=== PATIENT | female | born 1945 | race Caucasian/White ===

== ENCOUNTER 2019-07-04 16:51 | Inpatient (IN) ==
--- NOTE | 2019-07-04 17:13 | Diag Imaging Result Doc PS360 ---
EXAM: CT HEAD W/O CONTRAST 07/04/2019 HISTORY: STROKE LIKE SYMPTOMS TECHNIQUE: This exam was performed using automated exposure control, adjustment of mA or kV according to patient size, and/or use of iterative reconstruction technique. COMMENT: There are patchy abnormal lucencies in the periventricular white matter of both hemispheres. There is no evidence of mass effect or bleed. No abnormal extra-axial fluid collections are present. Compared to the previous examination of 10/17/2018 the appearance of the brain has not changed significantly. The visualized paranasal sinuses are clear. The calvarium is intact. IMPRESSION: Extensive chronic ischemic microvascular white matter changes. No definite evidence of acute disease. Further evaluation with MRI may be desirable. Electronically signed by Jhon River 07/04/2019 5:11 PM
--- NOTE | 2019-07-04 17:55 | Diag Imaging Result Doc PS360 ---
EXAM: CHEST-PORTABLE 07/04/2019 HISTORY: abd tender,pain TECHNIQUE: AP portable at 1736 COMMENT: There is ill-defined opacity in the left base obscuring the costophrenic sulcus which is worse than on 10/17/2018. There is apparent fibrosis in the right lower lobe which was present previously. IMPRESSION: Atelectasis versus pneumonia in the left lower lobe. Electronically signed by Jhon River 07/04/2019 5:52 PM
[2019-07-04 18:24] LABS: BASO# 0.04 X1000 (0.0-0.2); BASO% 0.2 % (0.0-0.8); EOS# 0.06 X1000 (0.0-0.7); EOS% 0.3 % (0.0-10.0); HEMATOCRIT 50.9 % (37.0-47.0); HEMOGLOBIN 16.7 g/dL (12.0-16.0); IMM GRAN# 0.07 X1000 (0.0-0.04); IMM GRAN% 0.4 % (0.0-0.5); LYMPH# 2.07 X1000 (1.2-3.4); LYMPH% 10.5 % (20.5-51.1); MCH 30.1 PG (27-31); MCHC 32.8 g/dL (33-37); MCV 91.7 FL (81-99); MONO% 12.6 % (1.7-9.3); MPV 11.8 FL (7.4-10.4); NEUT# 15.05 X1000 (1.4-6.5); PLT 231 X1000 (130-400); RBC 5.55 XMIL (4.2-5.4); RDW 14.2 % (11.5-14.5); WBC 19.79 X1000 (4.8-10.8)
--- NOTE | 2019-07-04 18:25 | ED EKG INTERP ---
This chart was entered by Lisa Delatorre Scribe, acting as scribe for Jayant Gruber MD. EKG Interpretation - EKG Time of EKG reading by physician:: 18:21 EKG Read and Signed by:: Jayant Gruber EKG Interpretation (*Must complete 3 of following elements*): Abnormal Rate: 96 Rhythm: SR w/PVCs [place]: normal QRS: other (low voltage) DE Interval: normal ST Wave: normal Comments: Septal infarct, age undetermined Attestation - Physician/ NUHA Attestation Patient care was provided by Advanced Practice Provider:: No The physician spent face to face time with patient:: Yes Advanced Practice Provider documentation review:: Supervising physician onsite and consulted in the evaluation and care of this patient. The physician did have a face to face encounter with the patient. This chart was documented by the indicated scribe, (Lisa Delatorre Scribe) and accurately reflects the services I performed and decisions made by me, Jayant Gruber MD, as attested by the provider's signature.
[2019-07-04 18:46] LABS: AGAP 18; ALB/GLOB RATIO 1.3; ALBUMIN 3.8 g/dL (3.5-5.0); ALKALINE PHOSPHATASE 69 U/L (32-104); BUN 19 mg/dL (8-22); CALCIUM 9.5 mg/dL (8.8-10.2); CHLORIDE 100 mmol/L (98-107); COSMO 289; CREATININE 0.8 mg/dL (0.5-0.9); ESTIMATED GFR > 60; GLUCOSE 125 mg/dL (70-104); GOT 26 U/L (10-30); GPT 13 U/L (10-36); POTASSIUM 4.5 mmol/L (3.5-5.1); SODIUM 143 mmol/L (136-145); TCO2 25 mmol/L (25-35); TOTAL BILIRUBIN 0.39 mg/dL (0.20-1.00); TOTAL PROTEIN 6.7 g/dL (6.3-8.3)
[2019-07-04] MEDS ORDERED: VANCOMYCIN 1 GM/NS 1 GM/250 ML IVPB IV ONE (18:52)
[2019-07-04] MEDS ORDERED: ZOSYN 4.5 GM in NS 100 ML IV ONE (18:52)
[2019-07-04 19:04] LABS: INR 1.21; PROTIME 15.5 Seconds (11.0-16.0)
[2019-07-04 19:07] LABS: ACETONE SERUM NEGATIVE (NEGATIVE)
[2019-07-04 19:09] LABS: PTT 31.6 Seconds (22.3-41.8)
--- NOTE | 2019-07-04 19:10 | PROVIDER DOCUMENTATION ---
This chart was entered by Ila Starr Scribe, acting as scribe for Jayant Gruber MD. HPI-Neurological Disorder - General Source: EMS - History of Present Illness-Neuro Severity: reports: mild Onset/Duration: reports: other (1899 yesterday) Timing: reports: still present Context: reports: other (AMS and leaning to the left) Associated Symptoms: reports: denies symptoms Similar Symptoms Previously?: Yes Recently seen or treated by another doctor?: No <Jayant Gruber - Last Filed: 07/04/19 19:09> <Tommy Kingston - Last Filed: 07/04/19 21:16> - General Chief Complaint: Altered Mental Status Stated Complaint: AMS, POSSIBLE STROKE Time Seen by Provider: 07/04/19 16:56 Allergies/Adverse Reactions: Patient Allergies Allergy/AdvReac Type Severity Reaction Status Date / Time No Known Allergies Allergy Verified 07/04/19 17:51 Home Medications: Home Medication List Medication Instructions Recorded Confirmed Last Taken Type Donepezil HCl 23 mg PO DAILY 10/17/18 07/04/19 10/17/18 07:00 History Memantine [Namenda] 10 mg PO BID 10/17/18 07/04/19 10/17/18 07:00 History Divalproex Sodium 250 mg PO BID 07/04/19 07/04/19 Unknown History Docusate Sodium 100 mg PO BID 07/04/19 07/04/19 Unknown History Duloxetine HCl 30 mg PO DAILY 07/04/19 07/04/19 Unknown History Fluticasone 50 Mcg Nasal [place] 2 spray INTRANASAL DAILY 07/04/19 07/04/19 Unknown History [Flonase] Multivits,Th W-Ca,Fe,Oth Min 1 ea PO DAILY 07/04/19 07/04/19 Unknown History [Thera Plus] Pantoprazole Sodium 40 mg PO DAILY 07/04/19 07/04/19 Unknown History Protein Hydrolysate,Milk [Liquid 30 ml PO DAILY 07/04/19 07/04/19 Unknown History Protein Fortifier] - History of Present Illness-Neuro Nature of Presenting Problem: Patient is a 73 year old female who presents to the ED via EMS with altered mental status. EMS states intermediate staff stated patient has been altered and leaning to the left since 1899 yesterday. History of dementia and left side hemiplegia. Daughter denies fever, nausea, vomiting and diarrhea. Daughter reports patient was seen by Dr. Tang two months ago and was informed her gallbladder does not work. (Jayant Gruber) Review of Systems - Adult - REVIEW OF SYSTEMS - ADULT ROS:: ROS per family (daughter) Constitutional: reports: no symptoms reported. denies: chills, fever, fatique Eyes: reports: no symptoms reported Ears, Nose, Mouth & Throat: reports: no symptoms reported Cardiovascular: reports: no symptoms reported Respiratory: reports: no symptoms reported Gastrointestinal: reports: no symptoms reported Genitourinary: reports: no symptoms reported Musculoskeletal: reports: no symptoms reported Integumentary: reports: no symptoms reported Neurological: reports: see HPI, other (AMS). denies: headache/migraines, syncope Psychiatric: reports: no symptoms reported Endocrine: reports: no symptoms reported Hematologic/Lymphatic: reports: no symptoms reported Allergic/Immunologic: reports: no symptoms reported All Other Systems: Reviewed and Negative <Jayant Gruber - Last Filed: 07/04/19 19:09> Past History - Adult - PAST MEDICAL HISTORY-ADULT Review of Records: reports: Old Records Reviewed, Social history reviewed & non- contributory. Major Childhood Illnesses: reports: denies history Cardiovascular: reports: denies history Respiratory: reports: denies history Gastrointestinal: reports: denies history Obstetrical/Gynecological: reports: denies history Genitourinary: reports: denies history Musculoskeletal: reports: denies history Neurological: reports: dementia, other (left side hemiplegia) Endocrine/Immune: reports: denies history Other Conditions: reports: denies history - PRIOR SURGERIES/PROCEDURES Surgical/Procedure History: reports: reviewed, not pertinent - IMMUNIZATION STATUS Childhood Immunizations: See Nurse Assessment Flu Vaccine: See Nurse Assessment - FAMILY HISTORY Family History: reviewed, not pertinent - SOCIAL HISTORY Smoking: cigarettes (former) Substance Use: denies Living Situation: care facility (SNF) <Jayant Gruber - Last Filed: 07/04/19 19:09> Physical Exam- Neurological - Physical Exam-Neuro Initial Vital Signs Reviewed: Yes General Appearance: alert, no apparent distress. negative: lethargic HENMT: normocephalic/atraumatic, moist mucous membranes. negative: angioedema Head Injury: no evidence of injury. negative: active bleeding, lacerations Respiratory: chest non-tender, lungs clear, normal breath sounds. negative: crackles, rhonchi Cardiovascular: normal peripheral pulses, extra beats (occasional ectopic beats) . negative: systolic murmur Abdominal Exam: normal bowel sounds, soft, tenderness (RUQ). negative: guarding Extremity: non-tender, normal inspection. 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 negative: facial droop Neurologic: other (patient moves all extremities). negative: aphasia, facial droop Integumentary: normal color, normal turgor, warm/dry. negative: cyanosis, ecchymosis, jaundice Psych/Mental Status: normal mood/affect. negative: anxious, paranoid <Jayant Gruber - Last Filed: 07/04/19 19:09> Progress - PLAN OF CARE/RESULTS Result Diagrams: 07/04/19 18:05 07/04/19 18:05 - CT/MRI 1 CT Study: Head Impression: See EMR Report ( EXAM: CT HEAD W/O CONTRAST 07/04/2019 HISTORY: STROKE LIKE SYMPTOMS TECHNIQUE: This exam was performed using automated expo sure control, adjustment of mA or kV according to patient size, and/or use of iterative reconstruction technique. COMMENT: There are patchy abnormal lucencies in the periventricular white matter of both hemispheres. There is no evidence of mass effect or bleed. No abnormal extra-axial fluid collections are present. Compared to the previous examination of 10/17/2018 the appearance of the brain has not changed significantly. The visualized paranasal sinuses are clear. The calvarium is intact. IMPRESSION: Extensive chronic ischemic microvascular white matter changes. No definite evidence of acute disease. Further evaluation with MRI may be desirable. Electronically signed by Jhon River 07/04/2019 5:11 PM 07/04/19 1711 Interpreting Physician: Jhon River MD Dictated Date/Time: 07/04/19 1700 cc: Sky Millan; Jayant Millan MD) - CHANGE OF SHIFT REPORT (ED Provider) 1 Report Given and Care Transferred to:: DR Leonid KINGSTON Time of Transfer: 19:09 <Jayant Gruber - Last Filed: 07/04/19 19:09> - PLAN OF CARE/RESULTS Result Diagrams: 07/04/19 18:05 07/04/19 18:05 <Tommy Kingston - Last Filed: 07/04/19 21:16> - PLAN OF CARE/RESULTS Progress/Plan/Lab Results: Vital Signs - 8 hr 07/04/19 17:41 07/04/19 18:10 07/04/19 18:15 Temperature 97.9 F Pulse Rate 88 106 H 115 H Respiratory Rate 25 H 23 24 Blood Pressure 134/64 O2 Sat by Pulse Oximetry 95 93 L 93 L 07/04/19 18:17 Temperature Pulse Rate 113 H Respiratory Rate 19 Blood Pressure 128/85 O2 Sat by Pulse Oximetry 89 L Laboratory Results - last 24 hr 07/04/19 07/04/19 07/04/19 18:05 18:05 18:05 WBC RBC Hgb Hct MCV MCH MCHC RDW Std Deviation Plt Count MPV Immature Gran % (Auto) Neut % (Auto) Lymph % (Auto) Mcpherson % (Auto) Eos % (Auto) Baso % (Auto) Immature Gran # (Auto) Neut # (Auto) Lymph # (Auto) Mcpherson # (Auto) Eos # (Auto) Baso # (Auto) PT INR PTT (Actin FS) Sodium 143 Potassium 4.5 Chloride 100 Carbon Dioxide 25 Anion Gap 18 BUN 19 Creatinine 0.8 Estimated GFR/1.73 m2 > 60 BUN/Creatinine Ratio 24 Glucose 125 H Calculated Osmolality 289 Calcium 9.5 Magnesium 2.2 Total Bilirubin 0.39 AST 26 ALT 13 Alkaline Phosphatase 69 Ammonia 68 H Troponin T Efl-M-Amoigcfkcca Pept Total Protein 6.7 Albumin 3.8 Globulin 2.9 Albumin/Globulin Ratio 1.3 Lipase Plasma Lactate Free T4 Urine Source Urine Color Urine Turbidity Urine pH Ur Specific Campus Urine Protein Ur Glucose (Stick) Ur Ketones (Stick) Urine Blood Urine Nitrite Urine Bilirubin Urobilinogen Dipstick Urine Leukocytes Urine WBC (Auto) Urine RBC (Auto) U Epithel Cells (Auto) Urine Bacteria (Auto) Acetone Level NEGATIVE 07/04/19 07/04/19 07/04/19 18:05 18:05 18:05 WBC 19.79 H RBC 5.55 H Hgb 16.7 H Hct 50.9 H MCV 91.7 MCH 30.1 MCHC 32.8 L RDW Std Deviation 14.2 Plt Count 231 MPV 11.8 H Immature Gran % (Auto) 0.4 Neut % (Auto) 76.0 H Lymph % (Auto) 10.5 L Mcpherson % (Auto) 12.6 H Eos % (Auto) 0.3 Baso % (Auto) 0.2 Immature Gran # (Auto) 0.07 H Neut # (Auto) 15.05 H Lymph # (Auto) 2.07 Mcpherson # (Auto) 2.50 H Eos # (Auto) 0.06 Baso # (Auto) 0.04 PT INR PTT (Actin FS) Sodium Potassium Chloride Carbon Dioxide Anion Gap BUN Creatinine Estimated GFR/1.73 m2 BUN/Creatinine Ratio Glucose Calculated Osmolality Calcium Magnesium Total Bilirubin AST ALT Alkaline Phosphatase Ammonia Troponin T Qox-R-Kxdrexjmuca Pept Total Protein Albumin Globulin Albumin/Globulin Ratio Lipase Plasma Lactate 2.1 Free T4 1.35 Urine Source Urine Color Urine Turbidity Urine pH Ur Specific Campus Urine Protein Ur Glucose (Stick) Ur Ketones (Stick) Urine Blood Urine Nitrite Urine Bilirubin Urobilinogen Dipstick Urine Leukocytes Urine WBC (Auto) Urine RBC (Auto) U Epithel Cells (Auto) Urine Bacteria (Auto) Acetone Level 07/04/19 07/04/19 07/04/19 18:05 18:05 18:05 WBC RBC Hgb Hct MCV MCH MCHC RDW Std Deviation Plt Count MPV Immature Gran % (Auto) Neut % (Auto) Lymph % (Auto) Mcpherson % (Auto) Eos % (Auto) Baso % (Auto) Immature Gran # (Auto) Neut # (Auto) Lymph # (Auto) Mcpherson # (Auto) Eos # (Auto) Baso # (Auto) PT INR PTT (Actin FS) Sodium Potassium Chloride Carbon Dioxide Anion Gap BUN Creatinine Estimated GFR/1.73 m2 BUN/Creatinine Ratio Glucose Calculated Osmolality Calcium Magnesium Total Bilirubin AST ALT Alkaline Phosphatase Ammonia Troponin T < 0.010 Jbc-R-Yfiibknpmrf Pept 1026 H Total Protein Albumin Globulin Albumin/Globulin Ratio Lipase 45 Plasma Lactate Free T4 Urine Source Urine Color Urine Turbidity Urine pH Ur Specific Campus Urine Protein Ur Glucose (Stick) Ur Ketones (Stick) Urine Blood Urine Nitrite Urine Bilirubin Urobilinogen Dipstick Urine Leukocytes Urine WBC (Auto) Urine RBC (Auto) U Epithel Cells (Auto) Urine Bacteria (Auto) Acetone Level 07/04/19 07/04/19 18:41 19:00 WBC RBC Hgb Hct MCV MCH MCHC RDW Std Deviation Plt Count MPV Immature Gran % (Auto) Neut % (Auto) Lymph % (Auto) Mcpherson % (Auto) Eos % (Auto) Baso % (Auto) Immature Gran # (Auto) Neut # (Auto) Lymph # (Auto) Mcpherson # (Auto) Eos # (Auto) Baso # (Auto) PT 15.5 INR 1.21 PTT (Actin FS) 31.6 Sodium Potassium Chloride Carbon Dioxide Anion Gap BUN Creatinine Estimated GFR/1.73 m2 BUN/Creatinine Ratio Glucose Calculated Osmolality Calcium Magnesium Total Bilirubin AST ALT Alkaline Phosphatase Ammonia Troponin T Nfd-H-Egeqcckoftu Pept Total Protein Albumin Globulin Albumin/Globulin Ratio Lipase Plasma Lactate Free T4 Urine Source CATH Urine Color YELLOW Urine Turbidity HAZY Urine pH 6.0 Ur Specific Campus 1.036 Urine Protein 100 A Ur Glucose (Stick) NEGATIVE Ur Ketones (Stick) TRACE A Urine Blood TRACE A Urine Nitrite NEGATIVE Urine Bilirubin NEGATIVE Urobilinogen Dipstick 2 A Urine Leukocytes NEGATIVE Urine WBC (Auto) <10 Urine RBC (Auto) 10-20 A U Epithel Cells (Auto) <10 Urine Bacteria (Auto) NEGATIVE Acetone Level Orders Category Date Time Status Cardiac Monitoring DIRECTED Care 07/04/19 17:23 Active Saline Loc NOW Care 07/04/19 17:23 Active CHEST-PORTABLE [RAD] Stat Exams 07/04/19 17:[address] ABD/PELVIS W/IV CONT ONLY [CT] Stat Exams 07/04/19 17:[address] HEAD W/O CONTRAST [CT] Stat Exams 07/04/19 16:52 Completed ACETONE SERUM [CHEM] Stat Lab 07/04/19 18:05 Completed AMMONIA [CHEM] Stat Lab 07/04/19 18:05 Completed CBC WITH ELECTRONIC DIFF [HEME] Stat Lab 07/04/19 18:05 Completed COMPREHENSIVE METABOLIC PANEL [CHEM] Stat Lab 07/04/19 18:05 Completed FREE T4 Stat Lab 07/04/19 18:05 Completed LACTATE, PLASMA [CHEM] Stat Lab 07/04/19 18:05 Completed LIPASE [CHEM] Stat Lab 07/04/19 18:05 Completed MAGNESIUM [CHEM] Stat Lab 07/04/19 18:05 Completed PRO B-NATRIURETIC PEPTIDE Stat Lab 07/04/19 18:05 Completed PROTIME WITH INR [COAG] Stat Lab 07/04/19 18:41 Completed PTT [COAG] Stat Lab 07/04/19 18:41 Completed TROPONIN T Stat Lab 07/04/19 18:05 Completed URINALYSIS W/POSS RFLX CULT [URINALYSIS] Stat Lab 07/04/19 19:00 Completed Piperacillin/Tazobactam [Zosyn] 3.375 gm Med 07/04/19 20:59 Active 0.9% Sodium Chloride Inj [Ns] 50 ml IV NOW Piperacillin/Tazobactam [Zosyn] 4.5 gm Med 07/04/19 18:52 Discontinued 0.9% Sodium Chloride Inj [Ns] 100 ml IV NOW Vancomycin 1 gm/Ns Med 07/04/19 18:52 Discontinued 1 gm in 250 ml IV NOW EKG [EKG] Stat Ther 07/04/19 17:23 Ordered Pt signed out to me by Dr. Gruber, CT shows acute delores, spoke with Dr Arrieta and he will see the patient in the am, will admit to Dr. Patton, pt give zosyn (Tommy Kingston) Departure <Jayant Gruber - Last Filed: 07/04/19 19:09> - Departure Date of Disposition Decision: 07/04/19 Time of Disposition Decision: 21:15 Certified Medical Emergency: Emergent - Critical Care Note This patient required my direct & personal management of CC.: No <Tommy Kingston - Last Filed: 07/04/19 21:16> - Departure DIAGNOSIS: Acute cholecystitis Disposition: ADMITTED INPATIENT 09 Condition: Stable Referrals and Follow-Ups: Jayant Millan MD [Primary Care Provider] - Attestation - Physician/ NUHA Attestation The physician spent face to face time with patient:: Yes Advanced Practice Provider documentation review:: Supervising physician onsite and consulted in the evaluation and care of this patient. The physician did have a face to face encounter with the patient. <Jayant Gruber - Last Filed: 07/04/19 19:09> - Physician/ NUHA Attestation Patient care was provided by Advanced Practice Provider:: No <Tommy Kingston - Last Filed: 07/04/19 21:16> This chart was documented by the indicated scribe, (Ila Starr Scribe) and accurately reflects the services I performed and decisions made by me, Jayant Gruber MD, as attested by the provider's signature.
[2019-07-04 19:19] LABS: URINE SOURCE CATH
[2019-07-04 19:21] LABS: BILIRUBIN URINE NEGATIVE (NEGATIVE); BLOOD URINE TRACE (NEGATIVE); COLOR YELLOW; GLUCOSE URINE NEGATIVE (NEGATIVE); KETONE URINE TRACE mg/dL (NEGATIVE); LEUKOCYTES URINE NEGATIVE (NEGATIVE); NITRITE URINE NEGATIVE (NEGATIVE); PROTEIN URINE 100 mg/dL (NEGATIVE); SP GRAVITY URINE 1.036; TURBIDITY URINE HAZY (CLEAR); UROBILINOGEN URINE 2 mg/dL (NORMAL)
[2019-07-04 19:22] LABS: UR EPITHELIAL CELLS <10 /HPF (<10); URINE BACTERIA NEGATIVE /HPF; URINE WBC <10 /HPF (<10)
--- NOTE | 2019-07-04 20:43 | Diag Imaging Result Doc PS360 ---
EXAM: CT ABD/PELVIS W/IV CONT ONLY 07/04/2019 HISTORY: abd pain,tender TECHNIQUE: This exam was performed using automated exposure control, adjustment of mA or kV according to patient size, and/or use of iterative reconstruction technique. COMMENT: There is bibasilar atelectasis. There are no previous studies. There are coronary calcifications. The adrenal glands are slightly hyperplastic bilaterally. The aorta is partially calcified. There is no evidence of aneurysm. The mesenteric and renal arteries are patent. There is marked. Cholecystic fluid and inflammation. This extends in the right side of the mesentery to abut the hepatic flexure of the colon. There may be some mucosal thickening in this portion of the colon, however otherwise there is no evidence of colonic inflammation. The small bowel is not distended. The pancreas is unremarkable. There is no evidence of significant adenopathy. No evidence of stones or hydronephrosis is present and kidneys. There are multiple cortical cysts present including one upper pole cyst on the right which is exophytic measuring 2.3 cm in diameter. Pelvis: The appendix is normal in appearance. There is an IUD apparently of the Lippes Loop type. The urinary bladder is slightly distended. There are some diverticula in the sigmoid colon without evidence of diverticulitis. There is a fair amount of stool in the distal colon. The regional skeleton appears to be intact. IMPRESSION: Acute cholecystitis. Phlegmonous change in the area around the hepatic flexure of the colon. Other nonacute findings as described above. Electronically signed by Jhon River 07/04/2019 8:41 PM
[2019-07-04] MEDS ORDERED: ZOSYN 3.375 GM in NS 50 ML IV ONE ×2 (20:59→22:37)
[2019-07-04] MEDS ORDERED: DUONEB (A & A) INH ONE (22:04)
[2019-07-04] MEDS ORDERED: NS 500 ML IV ONE (22:04)
[2019-07-04] MEDS ORDERED: MIRALAX PO ONE (22:37)
[2019-07-04] MEDS ORDERED: TYLENOL PO PRN (22:37)
[2019-07-04] MEDS ORDERED: ZOFRAN IV PRN (22:37)
[2019-07-04] MEDS ORDERED: DILAUDID IV PRN (22:37)
[2019-07-04] MEDS: DUONEB (A & A) INH PRN (22:48)
--- NOTE | 2019-07-04 23:09 | HISTORY AND PHYSICAL ---
REASON FOR ADMISSION: Acute confusional state today. HISTORY OF PRESENT ILLNESS: Ms. Ana Paula Simon is a 73-year-old woman with past medical history of chronic cholecystitis, dementia, and probable COPD. She is a resident of one of our local nursing homes and, according to the children who are at bedside, they stated that about 4 to 5 days ago she was very weak and not quite her usual self. Two days later, she saw sort of perked up, but as of yesterday, the nursing staff noted that she was very lethargic, and today more so confused. They contacted the family, who met her in the ER after the patient was transported by EMS to the ER. When I got there, the patient was initially sleeping, but during my exam she awakened and told me that she has no pain and no complaints. During the course of my exam, she did recollect that she was having belly pain. No reported fever or chills. The family reports that over the last 24 hours she has not been ambulating like she normally does. REVIEW OF SYSTEMS: Very limited due to the patient's degree of dementia. No reported diarrhea, per the family, or dysuria. No complaints of witnessing of shortness of breath or respiratory issues. ALLERGIES: No known allergies, except for morphine, which makes her queasy and sick to her stomach. MEDICATIONS: Divalproex sodium 250 mg b.i.d., Colace 100 mg b.i.d., Aricept 23 mg daily, duloxetine 30 mg daily, Flonase 2 puffs daily, protein hydrolysate milk, Namenda 10 mg b.i.d., Protonix 40 mg daily, multivitamin tablet once a day. SURGICAL HISTORY: She has had back surgery. SOCIAL HISTORY: Four years of smoking, stopped smoking about 15 years ago. Patient does not currently smoke, drink, or use illicit drugs. FAMILY HISTORY: Notable for gallbladder disease, breast cancer, and heart disease in 1st degree relatives. PAST MEDICAL HISTORY: Recurrent UTIs in the past. Patient was also seen in the hospital in March and, at that time, with abdominal complaints, which was diagnosed to be acute cholecystitis by Dr. Tang, and was treated conservatively with antibiotics. LAB WORK: White count 20,000, hemoglobin and hematocrit 16 and 51, platelets 231,000, neutrophils 76%. BUN is 19, creatinine 0.8. Glucose 125. Ammonia 68. Troponin is normal. ProBNP 1026. Lipase is normal. Lactate is normal. PT, PTT is normal. Urinalysis: [address] abdomen with impression of acute cholecystitis with phlegmonous change in the area around the hepatic flexure of the colon. Refer amount of stool in distal colon. Head CT showed no acute intracranial process. Chest film, poor inspiratory effort, questionable right lower lobe infiltrate. PHYSICAL EXAMINATION: GENERAL: Obese, elderly woman, who is alert and oriented only to person, not to place or time. HEENT: Head is normocephalic, atraumatic. Eyes: RUPERT, EOMI. ENT: Normal oropharynx exam. Mild xerostomia but no overt erythema. No central cyanosis noted. NECK: Short and thick. No JVD or thyromegaly noted. CHEST: Decreased entry in both lung canas with bibasilar crepitations, right greater than left. CARDIOVASCULAR: First and second sounds heard. No gallops, rubs. Rhythm is regular. Occasional skipped beat. ABDOMEN: Protuberant, soft, with tenderness confined mainly to the right upper quadrant area, but no peritoneal signs. Bowel sounds are hypoactive. No mass or organomegaly appreciated. Rectal exam is deferred.. EXTREMITIES: Good distal pulses volumes that are symmetrical, regular. No edema, clubbing, or cyanosis. NEUROLOGICAL: No gross focal deficits. SKIN: Intact. No breakdown, lesions, or erythema. MUSCULOSKELETAL: Grossly normal. ASSESSMENT: 1. Acute cholecystitis. 2. Dehydration. 3. Pneumonia, probable right lower lobe pneumonia. 4. Dementia. 5. Acute confusional state secondary to hypoxemia and possible coexisting cholecystitis and pneumonia. PLAN: Start patient on empiric antibiotics to cover for both presumptive nosocomial pneumonia and cholecystitis. The patient does have pyuria too, additionally we have to cover for that also. The patient will be on Zosyn q.[address] Arrieta was consulted and he will see the patient in the morning and discuss with the family about the need to proceed with surgery. In the interim, we will give patient breathing treatments. I do suspect she may have some mild form of COPD from her history of smoking, and she will get p.r.n. breathing treatments, but she will be given one in the ER. We will maintain patient's hemodynamic status with IV fluids. Will treat patient symptomatically for nausea and pain, if needed. SCDs for DVT prophylaxis. I also want to minimize potentially neurotoxic medications during this acute phase. cc: MD Jayant Celaya MD
[2019-07-04] MEDS: PERICOLACE PO SCH (23:37)
[2019-07-04] MEDS: DEPAKOTE SPRINKLE PO SCH (23:37)
[2019-07-04] MEDS: SODIUM CHLORIDE 0.9% INJ SCH (23:37)
[2019-07-04] MEDS: PEPCID IV SCH (23:37)
[2019-07-04] MEDS: NS 1,000 ML IV SCH (23:39)
[2019-07-04 23:40] LABS: URINE SOURCE CLEAN CATCH
[2019-07-04 23:52] LABS: BILIRUBIN URINE NEGATIVE (NEGATIVE); BLOOD URINE TRACE (NEGATIVE); COLOR YELLOW; GLUCOSE URINE NEGATIVE (NEGATIVE); KETONE URINE TRACE mg/dL (NEGATIVE); LEUKOCYTES URINE NEGATIVE (NEGATIVE); NITRITE URINE NEGATIVE (NEGATIVE); PH URINE 6.5; PROTEIN URINE 100 mg/dL (NEGATIVE); TURBIDITY URINE CLEAR (CLEAR); UROBILINOGEN URINE NORMAL (NORMAL)
[2019-07-04 23:56] LABS: UR EPITHELIAL CELLS <10 /HPF (<10); URINE BACTERIA NEGATIVE /HPF
[2019-07-04 23:57] LABS: SP GRAVITY URINE 1.015
--- NOTE | 2019-07-05 00:57 | EKG Report ---
Test Performed on : 07/04/2019 6:20:19 PM Test Reason : abd pain Blood Pressure : / mmHG Vent. Rate : 096 BPM Atrial Rate : 096 BPM P-R Int : 128 ms QRS Dur : 072 ms QT Int : 330 ms P-R-T Axes : 030 -30 059 degrees QTc Int : 416 ms Sinus rhythm. with premature atrial complexes. Left axis deviation Low voltage QRS Septal infarct , age undetermined Abnormal ECG When compared with ECG of 17-OCT-2018 08:53, premature atrial complexes. are now present Septal infarct is now present Unconfirmed Result
[2019-07-05 06:38] LABS: BASO# 0.02 X1000 (0.0-0.2); BASO% 0.1 % (0.0-0.8); EOS# 0.11 X1000 (0.0-0.7); EOS% 0.7 % (0.0-10.0); HEMOGLOBIN 14.2 g/dL (12.0-16.0); IMM GRAN# 0.03 X1000 (0.0-0.04); IMM GRAN% 0.2 % (0.0-0.5); LYMPH# 2.19 X1000 (1.2-3.4); LYMPH% 14.8 % (20.5-51.1); MCH 30.1 PG (27-31); MCHC 32.3 g/dL (33-37); MCV 93.4 FL (81-99); MONO# 1.83 X1000 (0.11-0.59); MONO% 12.3 % (1.7-9.3); NEUT# 10.65 X1000 (1.4-6.5); NEUT% 71.9 % (42.2-75.2); PLT 215 X1000 (130-400); RBC 4.71 XMIL (4.2-5.4); RDW 14.2 % (11.5-14.5); WBC 14.83 X1000 (4.8-10.8)
[2019-07-05 07:00] LABS: AGAP 9; ALKALINE PHOSPHATASE 58 U/L (32-104); BUN 16 mg/dL (8-22); CALCIUM 8.8 mg/dL (8.8-10.2); CHLORIDE 103 mmol/L (98-107); COSMO 283; CREATININE 0.7 mg/dL (0.5-0.9); ESTIMATED GFR > 60; GLUCOSE 107 mg/dL (70-104); GOT 12 U/L (10-30); GPT 9 U/L (10-36); MAGNESIUM 1.8 mg/dL (1.5-2.7); POTASSIUM 3.5 mmol/L (3.5-5.1); SODIUM 141 mmol/L (136-145); TCO2 29 mmol/L (25-35); TOTAL BILIRUBIN 0.47 mg/dL (0.20-1.00)
[2019-07-05] MEDS ORDERED: VANCOMYCIN IV PER PHARMACY MISC SCH (08:15)
[2019-07-05] MEDS: PERICOLACE PO SCH ×2 (09:15→21:52)
[2019-07-05] MEDS: NAMENDA PO SCH ×2 (09:15→21:52)
[2019-07-05] MEDS: DEPAKOTE SPRINKLE PO SCH ×2 (09:15→21:51)
[2019-07-05] MEDS: MIRALAX PO SCH (09:15)
[2019-07-05] MEDS: DUONEB (A & A) INH PRN ×2 (09:28→17:06)
[2019-07-05] MEDS: ZOSYN 3.375 GM in NS 50 ML IV SCH ×3 (10:34→21:51)
--- NOTE | 2019-07-05 10:49 | PROGRESS NOTE ---
DATE: 07/05/2019 SUBJECTIVE: The patient is a 73-year-old white female resident of residential who developed some right upper quadrant abdominal pain and decreasing activity over the past few days. She was brought to the Emergency Room where she was found to have acute and chronic cholecystitis, right lower lobe pneumonia, and cystitis. She was placed on Piperacillin and vancomycin. Dr. Arrieta was consulted for possible surgery. He tentatively plans a drain possibly in the common duct and continuation of antibiotics. Due to her dementia, and infection as well as history of heart disease, she is high risk for cholecystectomy having a bad outcome. She is somnolent this morning. She does not seem to be in any distress with palpation of her abdomen. PLAN: Continued conservative treatment. cc: Jayant Millan MD
[2019-07-05] MEDS ORDERED: VANCOMYCIN 1,500 MG in NS 250 ML IV ONE (11:00)
[2019-07-05 11:13] LABS: INR 1.1; PROTIME 14.3 Seconds (11.0-16.0); PTT 30.2 Seconds (22.3-41.8)
[2019-07-05] MEDS: NS 1,000 ML IV SCH (13:29)
[2019-07-05] MEDS: PEPCID IV SCH ×2 (13:30→21:52)
[2019-07-05] MEDS: ATIVAN IV PRN (18:22)
--- NOTE | 2019-07-05 19:08 | GENERAL SURGERY CONSULTATION ---
DATE: 07/05/2019 CHIEF COMPLAINTS: Abdominal pain HISTORY OF PRESENT ILLNESS: This is a 73-year-old female with endstage dementia and known coronary disease, diagnosed several years ago, who refused coronary artery bypass grafting. [facility] a [facility] for management of her dementia. She has had progressive alteration of her mental status over the last week and developed some abdominal discomfort, although for the most part she has become nonverbal. She had known abnormalities of her gallbladder back 3 months ago for which she saw Dr. Tang, but they elected at that point to not undergo any surgical intervention, given her burden of other medical issues. She came the ER for workup which showed she had a leukocytosis, hemoconcentration. She had a CT scan that showed stranding around the gallbladder concerning for cholecystitis. LFTs were normal. She is hemodynamically stable, and is admitted to the hospitalist service for management overnight. MEDICAL HISTORY: Dementia, vascular type, known coronary disease, recurrent UTIs. SURGICAL HISTORY: No major abdominal operations. She has had back surgery. SOCIAL HISTORY: She quit smoking many years ago. No current alcohol or drugs. She lives in a nursing facility. She has attentive family, however. MEDICATIONS: Negative for anticoagulants. FAMILY HISTORY: Reviewed and noncontributory. REVIEW OF SYSTEMS: Somewhat limited, but 10-point review of systems negative other than what is mentioned in HPI. PHYSICAL EXAMINATION: She is afebrile on exam. Pulse 87, blood pressure 121/69, oxygen saturation is low 90s on room air.General: She is somnolent, in no acute distress. Nonresponsive. HEENT: I do not see any scleral icterus. No cervical mass. Cardiovascular: Normal rate. Pulmonary: No increased work of breathing. She is on room air. Abdomen is soft, nontender, nondistended, with no peritonitis. Integument is warm and dry, without jaundice. Psychiatric: She has a depressed affect. Neurologic: Generalized weakness but no gross focal deficits. Peripheral vascular: Some trace lower extremity edema but otherwise well perfused. Lymphatic: I do not feel any cervical adenopathy. LABORATORY DATA: White count was 19 on admission, down to 14. Hematocrit is 44; it was 50 on admission. Creatinine 0.7. Her bilirubin is normal, 0.47. AST, ALT and alkaline phosphatase are normal. Ammonia was slightly elevated at 68. Troponins were clear. Urinalysis does show some white blood cells and blood. DIAGNOSTIC DATA: CT scan of the abdomen and pelvis shows thickening of the gallbladder wall, with changes around the hepatic flexure of the colon. ASSESSMENT AND PLAN: A 73-year-old female with multiple medical issues. She is very high risk from a surgical standpoint. The family in the past has elected not to pursue cholecystectomy. At this point she likely does have cholecystitis, and I suspect quite severe phlegmon-type changes around it. Her LFTs are normal. Her labs are improving with hydration and antibiotics. After discussion with the family, they have elected to make the patient Do Not Resuscitate/Allow Natural , but short of that I think she would be very high risk for any surgical intervention. She would be very high risk for an open procedure. We have discussed extensively the prolonged recovery from this. The probability of her returning to her current baseline if not even worse than that is high. The possibility of prolonged ventilation, as she does have pneumonia-type changes on her imaging. Given her rapid improvement on antibiotics, I have recommended continuing this for 24 hours. If she has a persistent white count or deterioration, I think a cholecystostomy tube would be reasonable to allow her to recover from this acute episode, and potentially definitively deal with her gallbladder. We did discuss that this is not an ideal situation, either. Cholecystostomy tubes can have complications, but weighed against the high probability of an open cholecystectomy this may be the most beneficial. Given the changes around her colon, I cannot speak for the fact that she does not have a neoplasm in her colon, although I do think this is secondary to her gallbladder, but seeing this, she would be at risk for a right colectomy at the time of her cholecystectomy, which would further increase her risk. We did discuss the possibility of an ostomy if it were to come to that. So, we will follow along. I would continue her current antibiotics as coverage for pneumonia and her cholecystitis, and we will entertain possible cholecystostomy in the next 24 hours. If she declines clinically. cc: MD Jayant Granados MD MTDD
[2019-07-05] MEDS: SODIUM CHLORIDE 0.9% INJ SCH (21:52)
[2019-07-06] MEDS: ZOSYN 3.375 GM in NS 50 ML IV SCH ×5 (02:37→22:13)
[2019-07-06] MEDS: NS 1,000 ML IV SCH ×5 (02:37→22:12)
[2019-07-06] MEDS: PEPCID IV SCH ×3 (02:38→22:09)
[2019-07-06 07:01] LABS: BASO# 0.05 X1000 (0.0-0.2); BASO% 0.6 % (0.0-0.8); EOS# 0.23 X1000 (0.0-0.7); EOS% 2.6 % (0.0-10.0); HEMATOCRIT 40.9 % (37.0-47.0); IMM GRAN# 0.02 X1000 (0.0-0.04); IMM GRAN% 0.2 % (0.0-0.5); LYMPH# 1.38 X1000 (1.2-3.4); LYMPH% 15.8 % (20.5-51.1); MCH 30.1 PG (27-31); MCHC 31.8 g/dL (33-37); MCV 94.7 FL (81-99); MONO# 1.07 X1000 (0.11-0.59); MONO% 12.3 % (1.7-9.3); MPV 11.8 FL (7.4-10.4); NEUT# 5.97 X1000 (1.4-6.5); NEUT% 68.5 % (42.2-75.2); PLT 194 X1000 (130-400); RBC 4.32 XMIL (4.2-5.4); WBC 8.72 X1000 (4.8-10.8)
[2019-07-06 07:20] LABS: AGAP 9; BUN 7 mg/dL (8-22); CALCIUM 8.8 mg/dL (8.8-10.2); CHLORIDE 105 mmol/L (98-107); COSMO 284; CREATININE 0.7 mg/dL (0.5-0.9); ESTIMATED GFR > 60; GLUCOSE 89 mg/dL (70-104); POTASSIUM 3.4 mmol/L (3.5-5.1); SODIUM 144 mmol/L (136-145); TCO2 30 mmol/L (25-35)
--- NOTE | 2019-07-06 09:00 | GENERAL SURGERY PROGRESS NOTE ---
DATE: 07/06/2019 SUBJECTIVE: She had a lot of delirium overnight. She pulled out 2 IVs but with some medication, she was able to rest beyond midnight and was resting comfortably this morning. No vomiting. She did not indicate she was having any pain. Her daughter is here with her. Spoke with Dr. Millan. No fevers overnight. Pulse has been for the most part normal, occasionally low grade tachycardia OBJECTIVE: VITAL SIGNS: Blood pressure 121/66, oxygen saturation is low to mid 90s on room air. GENERAL: On exam, she is resting comfortably in no acute distress. ABDOMEN: Soft, nontender. INTEGUMENT: Warm and dry without jaundice. Last white count was now normal at 8, hematocrit is 40. Creatinine 0.7. LFTs were normal both on admission and yesterday but have not been rechecked today. Lactate has normalized. ASSESSMENT AND PLAN: A 73-year-old female, likely cholecystitis. She has known coronary artery disease, end stage of dementia, very high risk for any abdominal procedure. She also has significant phlegmon type changes around her colon which would further complicate matters. Given her rapid improvement, I would recommend continuation of antibiotics. I talked to Dr. Millan and the daughter about this. My concern is even with cholecystomy which would be a less invasive procedure, the likelihood of her is very high given her severe dementia. We will follow along. I would recommend continuation of IV antibiotics due through the weekend and transitioning to a 2 week course of oral antibiotics going forward and I would like to see her before completion of those antibiotics as an outpatient. We will continue to follow while in house. cc: MD Jayant Granados MD MTDD
[2019-07-06] MEDS: PERICOLACE PO SCH ×2 (10:25→22:09)
[2019-07-06] MEDS: MIRALAX PO SCH (10:25)
--- NOTE | 2019-07-06 10:40 | PROGRESS NOTE ---
DATE: 07/06/2019 VITAL SIGNS: Stable with temperature 97.8 degrees, heart rate 53, respirations 17, blood pressure 121/66, O2 saturation on room air 92%. LABORATORY DATA: Hemoglobin 13.0, hematocrit 40.9, white blood count 8700 with 68% neutrophils. Sodium 144, potassium 3.4, BUN 7, creatinine 0.7. Lactate yesterday had dropped to 2.0. SUBJECTIVE: She had a restless night, but went to sleep about 12 midnight. She is somnolent this morning. Discussion was made with Dr. Arrieta who feels it is best to continue antibiotics then after discharge p.o. for about 2 weeks. Surgery with a drain would be a risk for the patient pulling the drain out. She pulled out her IV twice last evening. OBJECTIVE: Chest is clear. Abdomen is soft. PLAN: Continue conservative treatment. cc: Jayant Millan MD
[2019-07-06] MEDS: DEPAKOTE SPRINKLE PO SCH ×2 (11:23→22:08)
[2019-07-06] MEDS: NAMENDA PO SCH ×2 (11:24→22:08)
[2019-07-06] MEDS: SODIUM CHLORIDE 0.9% INJ SCH (14:22)
[2019-07-06] MEDS ORDERED: VANCOMYCIN 1,300 MG in NS 250 ML IV SCH (23:00)
[2019-07-07] MEDS: ATIVAN IV PRN (01:45)
[2019-07-07] MEDS: ZOSYN 3.375 GM in NS 50 ML IV SCH ×4 (05:00→23:14)
[2019-07-07] MEDS: NAMENDA PO SCH ×2 (09:48→22:09)
[2019-07-07] MEDS: MIRALAX PO SCH (09:49)
[2019-07-07] MEDS: DEPAKOTE SPRINKLE PO SCH ×2 (09:49→22:09)
--- NOTE | 2019-07-07 11:51 | PROGRESS NOTE ---
DATE: 07/07/2019 SUBJECTIVE: The patient is confused. She would not answer questions. I asked her if she was hurting anywhere and she said everywhere but then when I asked her about her abdomen she said that she was not hurting there. She is a little tender over the right upper quadrant. OBJECTIVE: Vital Signs: Blood pressure is 136/75, respirations 20, pulse 51, and temperature 97.8 degrees Fahrenheit. HEENT: Normocephalic. EOMs intact. PERRLA. Throat is clear. Respiratory: Lungs are clear to auscultation and percussion without rhonchi, rales, or wheezes. Heart Sounds: Regular rate and rhythm without murmurs, gallops, clicks, or rubs. Gastrointestinal: The abdomen is soft with maybe a little right upper quadrant tenderness. Neurological: Exam is intact grossly except for dementia. LABORATORY DATA: White count is now improved down to 8,720. Hemoglobin is 13. Potassium was just slightly low at 3.4. These numbers were actually done yesterday and not today. I will order new lab work today. She did have pyuria on the 4th but urine culture had no growth. Blood cultures had no growth. ASSESSMENT: 1. Probable acute cholecystitis. 2. Dementia. PLAN: Continue IV antibiotics. Because of her dementia surgery is hesitant to do any surgery. cc: MD Jayant Ji Jr, MD
[2019-07-07] MEDS: PERICOLACE PO SCH ×2 (13:25→22:09)
[2019-07-07] MEDS: NS 1,000 ML IV SCH ×3 (13:26→23:14)
[2019-07-07] MEDS: PEPCID IV SCH ×2 (13:27→23:14)
[2019-07-08] MEDS: ZOSYN 3.375 GM in NS 50 ML IV SCH (03:40)
[2019-07-08] MEDS: NS 1,000 ML IV SCH ×3 (06:51→22:39)
[2019-07-08 07:26] LABS: BASO# 0.04 X1000 (0.0-0.2); BASO% 0.6 % (0.0-0.8); EOS# 0.19 X1000 (0.0-0.7); EOS% 2.7 % (0.0-10.0); HEMATOCRIT 43.7 % (37.0-47.0); HEMOGLOBIN 14.2 g/dL (12.0-16.0); IMM GRAN# 0.02 X1000 (0.0-0.04); IMM GRAN% 0.3 % (0.0-0.5); LYMPH# 2.19 X1000 (1.2-3.4); LYMPH% 31.5 % (20.5-51.1); MCH 29.9 PG (27-31); MCHC 32.5 g/dL (33-37); MONO# 1.09 X1000 (0.11-0.59); MONO% 15.7 % (1.7-9.3); MPV 11.5 FL (7.4-10.4); NEUT# 3.43 X1000 (1.4-6.5); NEUT% 49.2 % (42.2-75.2); PLT 276 X1000 (130-400); RBC 4.75 XMIL (4.2-5.4); RDW 13.6 % (11.5-14.5); WBC 6.96 X1000 (4.8-10.8)
[2019-07-08 08:00] LABS: AGAP 12; BUN 6 mg/dL (8-22); CHLORIDE 105 mmol/L (98-107); COSMO 288; CREATININE 0.7 mg/dL (0.5-0.9); ESTIMATED GFR > 60; GLUCOSE 87 mg/dL (70-104); POTASSIUM 3.2 mmol/L (3.5-5.1); SODIUM 146 mmol/L (136-145); TCO2 29 mmol/L (25-35)
[2019-07-08] MEDS: MIRALAX PO SCH (10:13)
[2019-07-08] MEDS: NAMENDA PO SCH ×2 (10:14→21:03)
[2019-07-08] MEDS: DEPAKOTE SPRINKLE PO SCH ×2 (10:14→21:03)
[2019-07-08] MEDS: PERICOLACE PO SCH ×2 (10:15→21:03)
--- NOTE | 2019-07-08 10:35 | PROGRESS NOTE ---
DATE: 07/08/2019 SUBJECTIVE: The patient says that she is not hurting anywhere. OBJECTIVE: Vital Signs: Blood pressure 129/66, respirations 16, pulse 75, temperature 97.5 degrees Fahrenheit. HEENT: She is normocephalic. EOMS intact. PERRLA. Throat clear. Lungs: Clear to auscultation and percussion without rhonchi, rales, or wheezes. Heart: Regular rate and rhythm without murmurs, gallops, or friction rubs. Abdomen: Soft. Active bowel sounds. No organomegaly or tenderness. Initially when I pressed over the right upper quadrant, she said, "Ow," and then when I asked her if she had any pain, she said no. I came back and palpated again, and she did not seem to have any discomfort. Neurological: The patient has dementia, otherwise intact. LABORATORY: White count is down to 6960, hemoglobin 14.2. Potassium is a little low at 3.2. ASSESSMENT: 1. Acute cholecystitis. 2. Hypokalemia. 3. Dementia. PLAN: The patient's IV came out. Family members do not want the IV restarted. The patient was scheduled to switch over to oral antibiotics tomorrow. We will go ahead and do that today. I have elected to try her on Levaquin 500 mg p.o. daily and Flagyl 500 mg p.o. t.i.d. If she gets any nausea with the Flagyl, we can decrease the dosage a little bit. I will go ahead and give her supplemental potassium. We will check lab work in the morning. cc: MD Jayant Ji Jr, MD
[2019-07-08] MEDS: LEVAQUIN PO SCH (10:39)
[2019-07-08] MEDS: KLOR-CON PO SCH (10:39)
[2019-07-08] MEDS: PEPCID IV SCH (10:47)
[2019-07-08] MEDS: PEPCID PO SCH ×2 (13:42→21:03)
[2019-07-08] MEDS: FLAGYL PO SCH ×2 (13:42→17:40)
[2019-07-09] MEDS: NS 1,000 ML IV SCH (06:10)
[2019-07-09 06:34] LABS: BASO# 0.03 X1000 (0.0-0.2); BASO% 0.5 % (0.0-0.8); EOS# 0.13 X1000 (0.0-0.7); HEMATOCRIT 43.5 % (37.0-47.0); HEMOGLOBIN 14.4 g/dL (12.0-16.0); IMM GRAN# 0.03 X1000 (0.0-0.04); IMM GRAN% 0.5 % (0.0-0.5); LYMPH# 2.43 X1000 (1.2-3.4); MCH 30.3 PG (27-31); MCHC 33.1 g/dL (33-37); MCV 91.4 FL (81-99); MONO# 0.94 X1000 (0.11-0.59); MONO% 14.7 % (1.7-9.3); NEUT# 2.83 X1000 (1.4-6.5); NEUT% 44.3 % (42.2-75.2); PLT 301 X1000 (130-400); RBC 4.76 XMIL (4.2-5.4); RDW 13.6 % (11.5-14.5); WBC 6.39 X1000 (4.8-10.8)
[2019-07-09 06:57] LABS: AGAP 10; BUN 12 mg/dL (8-22); CHLORIDE 106 mmol/L (98-107); COSMO 287; CREATININE 0.7 mg/dL (0.5-0.9); ESTIMATED GFR > 60; GLUCOSE 106 mg/dL (70-104); POTASSIUM 3.6 mmol/L (3.5-5.1); SODIUM 144 mmol/L (136-145); TCO2 28 mmol/L (25-35)
--- NOTE | 2019-07-09 08:32 | PROGRESS NOTE ---
DATE: 07/09/2019 VITAL SIGNS: Stable with temperature 98.2 degrees, heart rate 82, respirations 16, blood pressure 123/71, O2 saturation on room air 97%. LABORATORY DATA: Sodium 144, potassium 3.6, BUN 12, creatinine 0.7, glucose 106. Hemoglobin 14.4, hematocrit 43.5, white blood count 6400 with normal differential. Blood cultures revealed no growth at 48 hours. Urine culture also revealed no growth. PLAN: She was changed to p.o. antibiotics yesterday, including Flagyl and Levaquin. The patient is able to return to the custodial when a bed is available. Social Service consult is obtained. cc: Jayant Millan MD
[2019-07-09] MEDS: LEVAQUIN PO SCH (09:15)
[2019-07-09] MEDS: DEPAKOTE SPRINKLE PO SCH (09:15)
[2019-07-09] MEDS: PERICOLACE PO SCH (09:15)
[2019-07-09] MEDS: NAMENDA PO SCH (09:15)
[2019-07-09] MEDS: KLOR-CON PO SCH (09:15)
[2019-07-09] MEDS: FLAGYL PO SCH (09:15)
[2019-07-09] MEDS: MIRALAX PO SCH (09:16)
--- NOTE | 2019-07-09 11:39 | DISCHARGE SUMMARY ---
ADMISSION DATE: 07/04/2019 DISCHARGE DATE: 07/09/2019 FINAL DIAGNOSES: 1. Acute cholecystitis. 2. Acute cystitis. 3. Right lower lobe pneumonia. DISCHARGE MEDICATIONS: Usual home medications plus Flagyl 500 mg t.i.d. for 2 weeks, and Levaquin 500 mg once daily for 2 weeks. DISPOSITION: Back to half-way. HISTORY: This is one of several [facility] admissions for this 73-year-old white female who presented to the emergency room with decrease in appetite and activity for several days. CT of her abdomen and pelvis revealed acute cholecystitis, phlegmon type change in the area surrounding hepatic flexure of the colon, and right lower lobe infiltrate. She was admitted for further evaluation and treatment. Dr. Arrieta, surgeon was consulted for further evaluation. INITIAL LABORATORY: Hemoglobin 16.7, hematocrit 50.9, white blood count 33270 with 76% neutrophils. Sodium 144, potassium 3.4, BUN 7, creatinine 0.7, and plasma lactate 3.5. HOSPITAL COURSE: She was placed on Zosyn and vancomycin. Decision was made to do conservative treatment rather than surgery. She remained afebrile. White blood count came back normal. She continues to have dementia and appetite has been poor. It is felt she has reached maximal benefit of hospitalization, and is transferred back to the half-way for continued care. Dr. Arrieta recommended 2 more weeks of p.o. antibiotics. She is to return as needed. cc: Jayant Millan MD
[2019-07-09 12:15] VITALS: BP 133/65
[2019-07-09] MEDS: PEPCID PO SCH (12:21)
== END 2019-07-09 13:22 | DRG 444 ==
LOC: SUPCPDRO → ED 16:51 → SUATTDRO 22:03 → 4N 22:03
PROVIDERS: ADMIT Family Medicine; ATTEND Family Medicine

== ENCOUNTER 2020-01-06 18:22 | Inpatient (IN) ==
[2020-01-06 19:22] LABS: BASO# 0.02 X1000 (0.0-0.2); BASO% 0.1 % (0.0-0.8); EOS# 0.01 X1000 (0.0-0.7); EOS% 0.1 % (0.0-10.0); HEMATOCRIT 48.6 % (37.0-47.0); HEMOGLOBIN 15.6 g/dL (12.0-16.0); IMM GRAN# 0.06 X1000 (0.0-0.04); IMM GRAN% 0.3 % (0.0-0.5); LYMPH# 1.73 X1000 (1.2-3.4); LYMPH% 8.7 % (20.5-51.1); MCH 30.7 PG (27-31); MCHC 32.1 g/dL (33-37); MCV 95.7 FL (81-99); MONO# 2.25 X1000 (0.11-0.59); MONO% 11.4 % (1.7-9.3); MPV 12.1 FL (7.4-10.4); NEUT# 15.74 X1000 (1.4-6.5); NEUT% 79.4 % (42.2-75.2); PLT 174 X1000 (130-400); RBC 5.08 XMIL (4.2-5.4); RDW 14.8 % (11.5-14.5); WBC 19.81 X1000 (4.8-10.8)
[2020-01-06 19:33] LABS: INR 1.04; PROTIME 13.8 Seconds (11.0-16.0)
[2020-01-06 19:34] LABS: PTT 29.6 Seconds (22.3-41.8)
[2020-01-06 19:39] LABS: AGAP 11; ALB/GLOB RATIO 1.5; ALBUMIN 3.2 g/dL (3.5-5.0); ALKALINE PHOSPHATASE 63 U/L (32-104); BUN 12 mg/dL (8-22); CALCIUM 9.1 mg/dL (8.8-10.2); CHLORIDE 105 mmol/L (98-107); CK PROFILE 116 U/L (24-173); COSMO 286; CREATININE 0.7 mg/dL (0.5-0.9); ESTIMATED GFR > 60; GLUCOSE 120 mg/dL (70-104); GOT 18 U/L (10-30); GPT 17 U/L (10-36); POTASSIUM 3.7 mmol/L (3.5-5.1); SODIUM 143 mmol/L (136-145); TCO2 27 mmol/L (25-35); TOTAL BILIRUBIN 0.34 mg/dL (0.20-1.00); TOTAL PROTEIN 5.4 g/dL (6.3-8.3)
--- NOTE | 2020-01-06 19:45 | Diag Imaging Result Doc PS360 ---
EXAM: CT HEAD W/O CONTRAST 01/06/2020 HISTORY: ams TECHNIQUE: This exam was performed using automated exposure control, adjustment of mA or kV according to patient size, and/or use of iterative reconstruction technique. COMMENT: There is patchy lucency throughout the white matter both hemispheres particularly in the frontal lobes. There is moderate cerebral atrophy with enlargement of the lateral ventricles. This was also present on 07/04/2019. There is no evidence of mass effect, bleed, or abnormal extra-axial fluid collection. The visualized paranasal sinuses are clear. IMPRESSION: Chronic ischemic changes and atrophy. No evidence of acute disease. Electronically signed by Jhon River 01/06/2020 7:42 PM
--- NOTE | 2020-01-06 19:46 | Diag Imaging Result Doc PS360 ---
EXAM: CHEST-PORTABLE 01/06/2020 HISTORY: ams TECHNIQUE: AP portable at 1937 COMMENT: There is some improvement in the opacities present in both lung bases on 07/04/2019. There is still residual opacification in the retrocardiac portion of the left lower lobe. IMPRESSION: Atelectasis versus pneumonia left lower lobe. Electronically signed by Jhon River 01/06/2020 7:43 PM
[2020-01-06 20:02] LABS: URINE SOURCE CATH
[2020-01-06 20:10] LABS: BILIRUBIN URINE SMALL (NEGATIVE); BLOOD URINE MODERATE (NEGATIVE); CLARITY CLOUDY (CLEAR); COLOR YELLOW; GLUCOSE URINE NEGATIVE (NEGATIVE); KETONE URINE TRACE mg/dL (NEGATIVE); LEUKOCYTES URINE MODERATE (NEGATIVE); NITRITE URINE NEGATIVE (NEGATIVE); PROTEIN URINE 30 mg/dL (NEGATIVE); SP GRAVITY URINE 1.025; UROBILINOGEN URINE 0.2 EU/dL (0.2-1.0)
[2020-01-06 20:11] LABS: URINE WBC TNTC /HPF (<10)
[2020-01-06 20:18] LABS: URINE BACTERIA NEGATIVE /HFP; URINE CAST NONE SEEN /LPF; URINE CRYSTAL NONE SEEN /HPF; URINE EPITHELIAL CELLS <10 /HPF (<10); URINE RBC 20-40 /HPF (<10); URINE SMALL ROUND CELLS TRANSITIONAL PRESENT; URINE YEAST NONE SEEN /HPF
--- NOTE | 2020-01-06 20:34 | EKG Report ---
Test Performed on : 01/06/2020 6:48:39 PM Test Reason : ams Blood Pressure : / mmHG Vent. Rate : 110 BPM Atrial Rate : 110 BPM P-R Int : 126 ms QRS Dur : 068 ms QT Int : 350 ms P-R-T Axes : 070 -47 089 degrees QTc Int : 473 ms Sinus tachycardia. Left axis deviation Pulmonary disease pattern Nonspecific ST and T wave abnormality Abnormal ECG When compared with ECG of 04-JUL-2019 18:20, premature atrial complexes. are no longer present Criteria for Septal infarct are no longer present Nonspecific T wave abnormality now evident in Lateral leads QT has lengthened Unconfirmed Result
[2020-01-06] MEDS ORDERED: NS 1,000 ML IV ONE (21:03)
[2020-01-06] MEDS ORDERED: ZOSYN 3.375 GM in NS 50 ML IV ONE (21:04)
[2020-01-06] MEDS ORDERED: VANCOMYCIN 1 GM/NS 1 GM/250 ML IVPB IV ONE (21:04)
[2020-01-06] MEDS ORDERED: TORADOL IV ONE (21:08)
--- NOTE | 2020-01-06 21:34 | PROVIDER DOCUMENTATION ---
This chart was entered by Lisa Delatorre Scribe, acting as scribe for Rod Roth MD. HPI-Fever - General Chief Complaint: Altered Mental Status Stated Complaint: FEVER/AMS Time Seen by Provider: 01/06/20 19:09 Source: family Allergies/Adverse Reactions: Patient Allergies Allergy/AdvReac Type Severity Reaction Status Date / Time No Known Allergies Allergy Verified 01/06/20 18:44 Home Medications: Home Medication List Medication Instructions Recorded Confirmed Last Taken Type Memantine [Namenda] 10 mg PO BID 10/17/18 01/06/20 10/17/18 07:00 History Divalproex Sodium 250 mg PO BID 07/04/19 01/06/20 Unknown History Docusate Sodium 100 mg PO BID 07/04/19 01/06/20 Unknown History Fluticasone 50 Mcg Nasal [place] 2 spray INTRANASAL DAILY 07/04/19 01/06/20 Unknown History [Flonase] Multivits,Th W-Ca,Fe,Oth Min 1 ea PO DAILY 07/04/19 01/06/20 Unknown History [Thera Plus] Pantoprazole Sodium 40 mg PO DAILY 07/04/19 01/06/20 Unknown History Duloxetine HCl [Drizalma Sprinkle] 30 mg PO DAILY 01/06/20 01/06/20 Unknown History - History of Present Illness-Fever Nature of Presenting Problem: 74 yowf presents w/family to er w/cc fever 100.5, unresponsive, convulsing, and tremors since this afternoon. pt resides at [facility] [place]. pt family sts pt has not followed commands since tuesday that they know of. pt has had illness since october; had flu/uri early october, was on 7 days rocephin IM end of october and had 3 weeks of antibiotics for c.diff 1-2 weeks ago. hx severe dementia, CAD and high cholesterol. former smoker, no alcohol or drug use. Fever Severity/Quality: reports: greater than 100.5 F Onset/Duration: reports: this afternoon Timing: reports: still present Severity: reports: moderate Context: reports: decreased mental status, from [facility] Recent Illness?: reports: C. Diff Cognitive Baseline: poor alertness Modifying Factors: improves with: nothing Recently seen or treated by another doctor?: Yes - Glascow Coma Score Best Eye Response ([place]): (3) open to voice Best Verbal Response ([place]): (1) no verbal response Best Motor Response ([place]): (1) no motor response Tan Total: 5 Review of Systems - Adult - REVIEW OF SYSTEMS - ADULT Constitutional: reports: see HPI, fever. denies: chills, fatique, night sweats Eyes: reports: no symptoms reported Ears, Nose, Mouth & Throat: reports: no symptoms reported Cardiovascular: reports: no symptoms reported Respiratory: reports: no symptoms reported Gastrointestinal: reports: no symptoms reported Genitourinary: reports: no symptoms reported Musculoskeletal: reports: no symptoms reported Integumentary: reports: no symptoms reported Neurological: reports: see HPI, tremors, other (convulsing, unresp.). denies: dizziness/vertigo, headache/migraines, numbness Psychiatric: reports: no symptoms reported Endocrine: reports: no symptoms reported Hematologic/Lymphatic: reports: no symptoms reported Allergic/Immunologic: reports: no symptoms reported All Other Systems: Reviewed and Negative Past History - Adult - PAST MEDICAL HISTORY-ADULT Review of Records: reports: Nursing Assessment Review, Medications Reviewed, Social history reviewed & non-contributory. Major Childhood Illnesses: reports: denies history Cardiovascular: reports: CAD, hyperlipidemia Respiratory: reports: denies history Gastrointestinal: reports: denies history Obstetrical/Gynecological: reports: denies history Genitourinary: reports: denies history Musculoskeletal: reports: denies history Neurological: reports: dementia Endocrine/Immune: reports: denies history Other Conditions: reports: denies history - PRIOR SURGERIES/PROCEDURES Surgical/Procedure History: reports: back/neck, other - IMMUNIZATION STATUS Childhood Immunizations: See Nurse Assessment Flu Vaccine: See Nurse Assessment - FAMILY HISTORY Family History: reviewed, not pertinent - SOCIAL HISTORY Smoking: other (former smoker) Substance Use: none/never Physical Exam-General - PHYSICAL EXAM-ADULT Initial Vital Signs Reviewed: Yes - CONSTITUTIONAL General Appearance: no apparent distress, lethargic, slow to respond, obtunded. negative: appears well, alert, combative - EYES Eyes: PERRL/EOMI - HEAD, EARS, NOSE, MOUTH & THROAT HENMT: normocephalic/atraumatic, moist mucous membranes - NECK Neck: non-tender, full range of motion, supple, normal inspection - RESPIRATORY Respiratory: chest non-tender, lungs clear, normal breath sounds - CARDIOVASCULAR Cardiovascular: normal peripheral pulses, no edema, no gallop, no JVD, no murmur , tachycardia. negative: regular rate, rhythm, bradycardia, friction rub, irregularly irregular - GASTROINTESTINAL (ABDOMEN) Abdominal Exam: normal bowel sounds, non tender, soft - MUSCULOSKELETAL Back Exam: normal inspection Extremity: normal range of motion, non-tender, normal inspection Peripheral Pulses: radial (L): 2+ - SKIN Integumentary: normal color, normal turgor, warm/dry - NEUROLOGIC Neurologic: other (pt has hx of dementia and is at baseline) - PSYCHIATRIC Psych/Mental Status: disoriented x 3, other (pt not responsive to questions but will respond to name with eyes.). negative: normal mood/affect, normal thought content, normal thought process, oriented x 3 Progress - PLAN OF CARE/RESULTS Progress/Plan/Lab Results: Vital Signs - 8 hr 01/06/20 18:30 01/06/20 20:45 Temperature 99.9 F H 101.8 F H Pulse Rate 122 H 111 H Respiratory Rate 21 28 H Blood Pressure 140/75 118/82 O2 Sat by Pulse Oximetry 93 L 97 Laboratory Results - last 24 hr 01/06/20 01/06/20 01/06/20 18:56 18:56 18:56 WBC RBC Hgb Hct MCV MCH MCHC RDW Std Deviation Plt Count MPV Immature Gran % (Auto) Neut % (Auto) Lymph % (Auto) [place] % (Auto) Eos % (Auto) Baso % (Auto) Immature Gran # (Auto) Neut # (Auto) Lymph # (Auto) [place] # (Auto) Eos # (Auto) Baso # (Auto) PT INR PTT (Actin FS) Sodium 143 Potassium 3.7 Chloride 105 Carbon Dioxide 27 Anion Gap 11 BUN 12 Creatinine 0.7 Estimated GFR/1.73 m2 > 60 BUN/Creatinine Ratio 17 Glucose 120 H Calculated Osmolality 286 Calcium 9.1 Total Bilirubin 0.34 AST 18 ALT 17 Alkaline Phosphatase 63 Creatine Kinase 116 Troponin T High Sens 12 Total Protein 5.4 L Albumin 3.2 L Globulin 2.2 Albumin/Globulin Ratio 1.5 Plasma Lactate 1.4 Urine Source Urine Color Urine Clarity Urine pH Ur Specific [place] Urine Protein Urine Ketones Urine Blood Urine Nitrite Urine Bilirubin Urine Urobilinogen Urine Microscopic RBC Urine WBC Urine Microscopic WBC Ur Epithelial Cells Urine Crystals Small Round Cells Urine Bacteria Urine Casts Urine Yeast Urine Glucose 01/06/20 01/06/20 01/06/20 18:56 18:56 19:50 WBC 19.81 H RBC 5.08 Hgb 15.6 Hct 48.6 H MCV 95.7 MCH 30.7 MCHC 32.1 L RDW Std Deviation 14.8 H Plt Count 174 MPV 12.1 H Immature Gran % (Auto) 0.3 Neut % (Auto) 79.4 H Lymph % (Auto) 8.7 L [place] % (Auto) 11.4 H Eos % (Auto) 0.1 Baso % (Auto) 0.1 Immature Gran # (Auto) 0.06 H Neut # (Auto) 15.74 H Lymph # (Auto) 1.73 [place] # (Auto) 2.25 H Eos # (Auto) 0.01 Baso # (Auto) 0.02 PT 13.8 INR 1.04 PTT (Actin FS) 29.6 Sodium Potassium Chloride Carbon Dioxide Anion Gap BUN Creatinine Estimated GFR/1.73 m2 BUN/Creatinine Ratio Glucose Calculated Osmolality Calcium Total Bilirubin AST ALT Alkaline Phosphatase Creatine Kinase Troponin T High Sens Total Protein Albumin Globulin Albumin/Globulin Ratio Plasma Lactate Urine Source CATH Urine Color YELLOW Urine Clarity CLOUDY A Urine pH 6.0 Ur Specific [place] 1.025 Urine Protein 30 A Urine Ketones TRACE A Urine Blood MODERATE A Urine Nitrite NEGATIVE Urine Bilirubin SMALL A Urine Urobilinogen 0.2 Urine Microscopic RBC 20-40 A Urine WBC MODERATE A Urine Microscopic WBC TNTC A Ur Epithelial Cells <10 Urine Crystals NONE SEEN Small Round Cells TRANSITIONAL PRESENT Urine Bacteria NEGATIVE Urine Casts NONE SEEN Urine Yeast NONE SEEN Urine Glucose NEGATIVE Orders Category Date Time Status Cardiac Monitoring DIRECTED Care 01/06/20 18:41 Active Code [Resuscitation Status] Routine Care 01/06/20 20:45 Ordered NEWS Score 2-4:Order NEWS Lactate Series NOW Care 01/06/20 18:40 Active NEWS Score >or=5:Order NEWS Bundle S.O. NOW Care 01/06/20 20:58 Active Oxygen Therapy- ED Nursing DIRECTED Care 01/06/20 18:41 Active Saline Loc NOW Care 01/06/20 18:41 Active Straight Catheterization ORDERED Care 01/06/20 19:57 Active CHEST-PORTABLE [RAD] Stat Exams 01/06/20 18:[address] HEAD W/O CONTRAST [CT] Stat Exams 01/06/20 18:42 Completed BLOOD CULTURE [BLDCUL] Stat Lab 01/06/20 18:56 Results CBC WITH ELECTRONIC DIFF [HEME] Stat Lab 01/06/20 18:56 Completed CK PROFILE [SP CHEM] Stat Lab 01/06/20 18:56 Completed COMPREHENSIVE METABOLIC PANEL [CHEM] Stat Lab 01/06/20 18:56 Completed LACTATE, PLASMA [CHEM] Lab 01/06/20 21:45 Uncollected LACTATE, PLASMA [CHEM] Lab 01/07/20 00:45 Uncollected LACTATE, PLASMA [CHEM] Stat Lab 01/06/20 18:56 Completed PROTIME WITH INR [COAG] Stat Lab 01/06/20 18:56 Completed PTT [COAG] Stat Lab 01/06/20 18:56 Completed TROPONIN T HIGH SENSITIVITY Stat Lab 01/06/20 18:56 Completed URINE CULTURE [RM] Routine Lab 01/06/20 19:50 Received 0.9% Sodium Chloride Inj [Ns] 1,000 ml Med 01/06/20 21:03 Active IV 999 mls/hr Ketorolac [Toradol] Med 01/06/20 21:08 Discontinued 15 mg IV NOW ONE Piperacillin/Tazobactam [Zosyn] 3.375 gm Med 01/06/20 21:04 Active 0.9% Sodium Chloride Inj [Ns] 50 ml IV NOW Vancomycin 1 gm/Ns Med 01/06/20 21:04 Active 1 gm in 250 ml IV NOW Altered Mental Status Stat Oth 01/06/20 18:41 Ordered EKG [EKG] Stat Ther 01/06/20 18:41 Draft Result Diagrams: 01/06/20 18:56 01/06/20 18:56 - REASSESSMENT Reassessment #1 Time Reassessed: 21:32 Status: unchanged (patient is awke but lethargic. NO distress. Discussed labs, UA and xray findings with daughter and the need for hospitalization. She agrees with plan. Hospitalist paged) - XRAY 1 XRAY Study: Chest Impression: Abnormal, See EMR Report (EXAM: CHEST-PORTABLE 01/06/2020 HISTORY: ams TECHNIQUE: AP portable at 1937 COMMENT: There is some improvement in the opacities present in both lung bases on 07/04/2019. There is still residual opacification in the retrocardiac portion of the left lower lobe. IMPRESSION: Atelectasis versus pneumonia left lower lobe. Electronically signed by Jhon River 01/06/2020 7:43 PM) - CT/MRI 1 CT Study: Head Impression: Abnormal, See EMR Report ( EXAM: CT HEAD W/O CONTRAST 01/06/2020 HISTORY: ams TECHNIQUE: This exam was performed using automated exposure control, adjustment of mA or kV according to patient size, and/or use of iter ative reconstruction technique. COMMENT: There is patchy lucency throughout the white matter both hemispheres particularly in the frontal lobes. There is moderate cerebral atrophy with enlargement of the lateral ventricles. This was also present on 07/04/2019. There is no evidence of mass effect, bleed, or abnormal extra-axial fluid collection. The visualized paranasal sinuses are clear. IMPRESSION: Chronic ischemic changes and atrophy. No evidence of acute disease. Electronically signed by Jhon River 01/06/2020 7:42 PM) Comparison with other Films: no changes - CONSULTS/PCP/HOSPITALIST Notification #1 *Consult/PCP/Hospitalist*: Dr Patton Time Discussed: 21:30 Consult Disposition: Admit (accepts admission) Departure - Departure Date of Disposition Decision: 01/06/20 Time of Disposition Decision: 21:30 DIAGNOSIS: Pneumonia Qualifiers: Pneumonia type: due to unspecified organism Laterality: left Lung location: lower lobe of lung Qualified Code(s): J18.1 - Lobar pneumonia, unspecified organism UTI (urinary tract infection) Qualifiers: Urinary tract infection type: site unspecified Hematuria presence: without hematuria Qualified Code(s): N39.0 - Urinary tract infection, site not specified AMS (altered mental status) Qualifiers: Altered mental status type: somnolence Qualified Code(s): R40.0 - Somnolence Disposition: HOME 01 Certified Medical Emergency: Emergent Condition: Fair Referrals and Follow-Ups: None,PCP [Primary Care Provider] - - Critical Care Note This patient required my direct & personal management of CC.: No Attestation - Physician/ NUHA Attestation Patient care was provided by Advanced Practice Provider:: No The physician spent face to face time with patient:: Yes Advanced Practice Provider documentation review:: Supervising physician onsite and consulted in the evaluation and care of this patient. The physician did have a face to face encounter with the patient. This chart was documented by the indicated scribe, (Lisa Delatorre Scribe) and accurately reflects the services I performed and decisions made by me, Rod Roth MD, as attested by the provider's signature.
[2020-01-07] MEDS: DUONEB (A & A) INH SCH ×6 (00:40→23:04)
[2020-01-07] MEDS ORDERED: TYLENOL PO PRN (00:43)
[2020-01-07] MEDS ORDERED: VANCOMYCIN IV PER PHARMACY MISC SCH (00:43)
[2020-01-07] MEDS ORDERED: ZOFRAN IV PRN (00:43)
[2020-01-07] MEDS ORDERED: TYLENOL PR PRN (01:05)
--- NOTE | 2020-01-07 01:17 | HISTORY AND PHYSICAL ---
PRIMARY CARE PHYSICIAN: Dr. Jayant Cook [facility]. Dr. Cook is office. HISTORY OF PRESENT ILLNESS: Ms. Ana Paula Simon is a 74-year-old white female with a past medical history of dementia, COPD, who recently was treated 2 weeks ago for C diff. Currently she is not having any diarrhea at this time. The patient was brought in today because she was more lethargic and less responsive. Over the last couple of days the patient has not been willing to eat, and is having some difficulty swallowing. Today the patient's daughter says she was called because the patient was not only lethargic but was having fever and chills and more confused than usual. Due to the patient's current cognitive limitations I could not get any further history. The patient's daughter reports that the chills so severe that she thinks she may have had "a seizure." . REVIEW OF SYSTEMS: Is very limited. Positive findings noted as above. ALLERGIES: No known allergies. HOME MEDICATIONS: Namenda 10 mg b.i.d., Flonase 2 sprays p.r.n., duloxetine 30 mg daily, divalproex sodium 250 mg b.i.d., Colace 100 mg b.i.d., Protonix 40 mg daily, multivitamin tablets daily. PAST SURGICAL HISTORY: Back surgery. No other surgeries. FAMILY HISTORY: Breast cancer, heart disease in first-degree relatives. SOCIAL HISTORY: assisted patient. Does not smoke, drink or use drugs at this time. LABORATORY DATA: White count 19,000, hemoglobin and hematocrit 15 and 48, platelets 174,000, left shift. BUN is 12, creatinine 0.7, glucose 120, albumin 2.2. PTT is normal. Urinalysis shows too numerous to count WBCs, moderate blood, trace ketones, cloudy urine. IMAGING: Chest film showed possible left lower lobe pneumonia. Head CT, chronic ischemic changes and atrophy noted. PHYSICAL EXAMINATION: GENERAL: Acutely ill looking elderly woman who is very not very responsive. She is somewhat obtunded. VITAL SIGNS: Blood pressure is 129/74, heart rate 110, respiratory rate is 20, temperature is 99.9 degrees. She is 96% on 2 L. HEENT: Head is normocephalic, atraumatic. Eyes: RUPERT, EOMI. He is anicteric not pale. Ear, Nose, Throat: Exam is grossly normal except for mild xerostomia. No sinus cyanosis. NECK: Short and thick. No JVD or carotid bruit. No thyromegaly. CHEST: Left lower lobe basal crepitations heard. No wheezes. CARDIOVASCULAR: First and second heart sounds heard. No gallops or rubs. ABDOMEN: Slightly protuberant, soft. No focal areas of tenderness. Bowel sounds are slightly hyperactive. RECTAL: Exam is deferred at this time. EXTREMITIES: No edema, clubbing or peripheral cyanosis. NEUROLOGIC: No gross focal deficits. SKIN: Intact. No breakdown, lesion or erythema. MUSCULOSKELETAL: Muscular exam is grossly normal. ASSESSMENT: 1. Pneumonia. 2. Urinary tract infection. 3. Dementia. 4. Questionable provoked seizure from fever. PLAN: The patient will be started on Flagyl to cover for anaerobes ingested orally, but also may for what it is worth hopefully decrease risk of Clostridium difficile recurrence. The patient was also started on Maxipime to cover for Pseudomonas, vancomycin for Staphylococcal MRSE infection. The patient will be given breathing treatments, fluid support. The patient is a level 1 DNR. Follow urine cultures. Hold any potentially neurotoxic medications to see if the patient improves without them on board. Probiotics to be given to decrease the risk of Clostridium difficile recurrence, and vigilance for this needs to be done. cc: Jayant Millan MD
[2020-01-07] MEDS: MAXIPIME 1 GM in NS 50 ML IV SCH ×2 (01:24→13:00)
[2020-01-07] MEDS: NS 1,000 ML IV SCH ×3 (01:25→22:03)
[2020-01-07] MEDS: LOVENOX SUBQ SCH (01:25)
[2020-01-07] MEDS ORDERED: VANCOMYCIN 600 MG in NS 150 ML IV ONE (02:00)
[2020-01-07] MEDS: FLAGYL 500 MG/NS 500 MG/100 ML IVPB IV SCH ×4 (02:03→22:04)
[2020-01-07] MEDS ORDERED: CALMOSEPTINE OINTMENT TOP PRN (03:43)
[2020-01-07 07:43] LABS: BASO# 0.04 X1000 (0.0-0.2); BASO% 0.2 % (0.0-0.8); HEMATOCRIT 46.2 % (37.0-47.0); IMM GRAN# 0.06 X1000 (0.0-0.04); IMM GRAN% 0.3 % (0.0-0.5); LYMPH# 1.32 X1000 (1.2-3.4); LYMPH% 7.4 % (20.5-51.1); MCH 31.6 PG (27-31); MCHC 32.5 g/dL (33-37); MCV 97.5 FL (81-99); MONO% 21.8 % (1.7-9.3); MPV 12.1 FL (7.4-10.4); NEUT% 70.3 % (42.2-75.2); PLT 154 X1000 (130-400); RBC 4.74 XMIL (4.2-5.4); WBC 17.92 X1000 (4.8-10.8)
[2020-01-07 07:49] LABS: AGAP 13; BUN 14 mg/dL (8-22); CALCIUM 8.2 mg/dL (8.8-10.2); CHLORIDE 110 mmol/L (98-107); COSMO 288; CREATININE 0.8 mg/dL (0.5-0.9); ESTIMATED GFR > 60; GLUCOSE 105 mg/dL (70-104); POTASSIUM 3.8 mmol/L (3.5-5.1); SODIUM 144 mmol/L (136-145); TCO2 21 mmol/L (25-35)
[2020-01-07 07:59] LABS: BANDS 15 % (0-1); LYMPHS 7 % (21-51); MONO 15 % (1-9); SEGS 63 % (42-75)
[2020-01-07] MEDS: CULTURELLE PO SCH ×2 (08:51→22:05)
[2020-01-07] MEDS: DEPAKOTE SPRINKLE PO SCH ×2 (08:51→22:04)
--- NOTE | 2020-01-07 17:45 | PROGRESS NOTE ---
DATE: 01/07/2020 SUBJECTIVE: Ms. Goss is doing fair. Patient admitted with lethargy and less responsiveness over the last couple of days, not eating well, difficulty in swallowing. The patient had fever and chills. The patient was brought to the emergency room. Workup in the ER did reveal leukocytosis. CT scan of the head, results reviewed. Urinalysis did reveal UTI. Her chest x-ray revealed atelectasis versus left lower lobe pneumonia. PHYSICAL EXAMINATION: Vital Signs: Noted temperature 100.5 degrees. Neck: Supple. No JVD. Lungs: Bibasilar crepitations. Heart: S1 and S2. Tachycardia. Abdomen: Soft, globular. Bowel sounds present. HVAC/R INSTRUCTOR: Patient is sleeping, arousable. Uncooperative for detailed exam. LABORATORY DATA: WBC count 17.92, hemoglobin 15, hematocrit 46.2, platelet count 154,000. Patient does have left shift. Electrolyte results reviewed, so as the urinalysis. Urine culture no growth. CONSIDERATIONS: 1. Urinary tract infection. 2. Metabolic encephalopathy. 3. History of gallstones. Recent Clostridium difficile induced colitis. 4. Alzheimer's type dementia. 5. The patient is on broad-spectrum antibiotics which I will continue. 6. Continue rest of the treatment. 7. Close observation. cc: Fabrizio Hernandez MD
[2020-01-08] MEDS: LOVENOX SUBQ SCH (01:54)
[2020-01-08] MEDS: MAXIPIME 1 GM in NS 50 ML IV SCH ×2 (01:54→15:53)
[2020-01-08] MEDS: FLAGYL 500 MG/NS 500 MG/100 ML IVPB IV SCH ×4 (01:55→21:21)
[2020-01-08] MEDS ORDERED: SODIUM CHLORIDE 0.9% INJ SCH (07:00)
--- NOTE | 2020-01-08 07:20 | PROGRESS NOTE ---
DATE: 01/08/2020 SUBJECTIVE: Ms. Simon is doing fair. Nurse reported the patient having diarrhea stool, which does have mucus, and at times, it is slimy. The patient had colitis due to Clostridium difficile toxin. The patient is on IV Flagyl and IV vancomycin. I am going to stop IV vancomycin, and put her on p.o. vancomycin. Will do the stool workup. At times, her blood pressure is low. Will continue IV fluid. She denied any nausea or vomiting. No abdominal pain. No high-grade fever or chills. Occasional cough. No expectoration. Oral intake variable. Patient admitted with leukocytosis, fever, and chills. OBJECTIVE: Vital Signs: Noted. Neck: Supple. No JVD. Lungs: Bibasilar crepitation. Heart: S1 and S2 heard. Abdomen: Soft, globular. Bowel sounds present. No local tenderness. Extremities: No cyanosis, clubbing. No acute DVT. DOCUMENT PREPARER MICROFILMING: Alert, awake, uncooperative for detailed exam. CONSIDERATION: The patient's initial urinalysis did reveal urinary tract infection, but urine culture was negative. Chest x-ray did reveal possible pneumonia in the left lower lobe. Other consideration is systemic inflammatory response syndrome. I am concerned about Clostridium difficile toxin-induced colitis. The patient does have advanced dementia, history of gallstones. PLAN: Continue IV fluid, IV antibiotics, close observation, supportive care. cc: Fabrizio Hernandez MD
[2020-01-08] MEDS: DUONEB (A & A) INH SCH ×5 (07:36→22:20)
[2020-01-08] MEDS: PROTONIX IV SCH (08:07)
[2020-01-08] MEDS: VANCOCIN PO SCH ×2 (08:08→15:58)
[2020-01-08] MEDS: NS + KCL 20 MEQ 1,000 ML IV SCH ×2 (08:08→21:20)
[2020-01-08] MEDS: DEPAKOTE SPRINKLE PO SCH ×2 (08:09→21:21)
[2020-01-08] MEDS: CULTURELLE PO SCH ×2 (08:09→21:21)
[2020-01-08 09:45] LABS: AGAP 10; ALB/GLOB RATIO 0.9; ALBUMIN 2.4 g/dL (3.5-5.0); ALKALINE PHOSPHATASE 105 U/L (32-104); BASO# 0.04 X1000 (0.0-0.2); BASO% 0.3 % (0.0-0.8); BUN 13 mg/dL (8-22); CALCIUM 8.2 mg/dL (8.8-10.2); CHLORIDE 114 mmol/L (98-107); COSMO 296; CREATININE 0.6 mg/dL (0.5-0.9); EOS# 0.16 X1000 (0.0-0.7); EOS% 1.1 % (0.0-10.0); ESTIMATED GFR > 60; GLUCOSE 96 mg/dL (70-104); GOT 16 U/L (10-30); GPT 10 U/L (10-36); HEMATOCRIT 43.6 % (37.0-47.0); HEMOGLOBIN 13.5 g/dL (12.0-16.0); IMM GRAN# 0.06 X1000 (0.0-0.04); IMM GRAN% 0.4 % (0.0-0.5); LYMPH# 3.08 X1000 (1.2-3.4); LYMPH% 20.8 % (20.5-51.1); MCH 30.3 PG (27-31); MCV 97.8 FL (81-99); MONO# 1.89 X1000 (0.11-0.59); MONO% 12.8 % (1.7-9.3); MPV 12.4 FL (7.4-10.4); NEUT# 9.59 X1000 (1.4-6.5); NEUT% 64.6 % (42.2-75.2); PLT 162 X1000 (130-400); POTASSIUM 3.4 mmol/L (3.5-5.1); RBC 4.46 XMIL (4.2-5.4); RDW 15.1 % (11.5-14.5); SODIUM 149 mmol/L (136-145); TCO2 25 mmol/L (25-35); TOTAL BILIRUBIN 0.29 mg/dL (0.20-1.00); TOTAL PROTEIN 5.1 g/dL (6.3-8.3); WBC 14.82 X1000 (4.8-10.8)
[2020-01-08] MEDS: KLOR-CON PO SCH (21:21)
[2020-01-09] MEDS: MAXIPIME 1 GM in NS 50 ML IV SCH ×2 (01:30→15:01)
[2020-01-09] MEDS: LOVENOX SUBQ SCH ×2 (01:30→21:00)
[2020-01-09] MEDS ORDERED: VANCOMYCIN 1,400 MG in NS 250 ML IV SCH (02:00)
[2020-01-09] MEDS: FLAGYL 500 MG/NS 500 MG/100 ML IVPB IV SCH ×4 (03:45→21:25)
[2020-01-09] MEDS: PROTONIX IV SCH (06:09)
--- NOTE | 2020-01-09 07:19 | Diag Imaging Result Doc PS360 ---
EXAM: CHEST-PORTABLE HISTORY: pneumonia TECHNIQUE: Single view COMPARISON: 01/06/2020 FINDINGS: The lungs are well expanded. The heart is mildly prominent and there is mild vascular distention. Right perihilar prominence remains. Atelectasis or infiltrate in the left lung base with a tiny effusion. IMPRESSION: No interval improvement Electronically signed by Truman Moreno 01/09/2020 7:17 AM
--- NOTE | 2020-01-09 07:28 | PROGRESS NOTE ---
DATE: 01/09/2020 SUBJECTIVE: Ms Goss is doing better. Oral intake seems to be improving. No high-grade fever or chills. Her blood pressure is better. No nausea or vomiting. Tolerating antibiotics well. Denied any chest pain. The patient's daughter was present. OBJECTIVE: Vital Signs: Noted. Patient is afebrile. Neck: Supple. No JVD. Lungs: Bibasilar crepitations. Heart: S1 and S2 heard. Abdomen: Soft, globular. Bowel sounds present. Extremities: No cyanosis, clubbing. No acute DVT. Central nervous system: Alert, awake. Able to move all 4 limbs. CONSIDERATION: Patient admitted with fever, chills, chest congestion. Chest x-ray did reveal possible pneumonia. The patient had diarrhea. We did stool workup, it was negative. Eyes stopped her oral vancomycin. Patient is on Maxipime. The patient does have dementia, osteoarthritis. Leukocytosis seems to be improving. Had hypokalemia, supplemented potassium. Patient's daughter was present. Overall plan and prognosis discussed. I am going to recheck appropriate lab and x-ray today. If clinical condition permits, we will plan discharging patient to the detention tomorrow. cc: Fabrizio Hernandez MD
[2020-01-09 07:48] LABS: BASO# 0.03 X1000 (0.0-0.2); BASO% 0.3 % (0.0-0.8); EOS# 0.39 X1000 (0.0-0.7); EOS% 3.3 % (0.0-10.0); HEMATOCRIT 39.5 % (37.0-47.0); HEMOGLOBIN 12.3 g/dL (12.0-16.0); IMM GRAN# 0.05 X1000 (0.0-0.04); IMM GRAN% 0.4 % (0.0-0.5); LYMPH# 2.17 X1000 (1.2-3.4); LYMPH% 18.1 % (20.5-51.1); MCH 30.1 PG (27-31); MCHC 31.1 g/dL (33-37); MCV 96.8 FL (81-99); MONO# 1.06 X1000 (0.11-0.59); MONO% 8.8 % (1.7-9.3); MPV 11.8 FL (7.4-10.4); NEUT% 69.1 % (42.2-75.2); PLT 188 X1000 (130-400); RBC 4.08 XMIL (4.2-5.4); RDW 14.9 % (11.5-14.5)
[2020-01-09] MEDS: DUONEB (A & A) INH SCH ×5 (07:57→23:12)
[2020-01-09 08:04] LABS: AGAP 7; ALB/GLOB RATIO 0.9; ALBUMIN 2.2 g/dL (3.5-5.0); ALKALINE PHOSPHATASE 51 U/L (32-104); BUN 10 mg/dL (8-22); CALCIUM 7.8 mg/dL (8.8-10.2); CHLORIDE 114 mmol/L (98-107); COSMO 286; CREATININE 0.5 mg/dL (0.5-0.9); ESTIMATED GFR > 60; GLUCOSE 92 mg/dL (70-104); GOT 16 U/L (10-30); GPT 9 U/L (10-36); MAGNESIUM 1.6 mg/dL (1.5-2.7); POTASSIUM 3.4 mmol/L (3.5-5.1); SODIUM 144 mmol/L (136-145); TCO2 23 mmol/L (25-35); TOTAL PROTEIN 4.6 g/dL (6.3-8.3)
[2020-01-09] MEDS: DEPAKOTE SPRINKLE PO SCH ×2 (10:12→21:24)
[2020-01-09] MEDS: CULTURELLE PO SCH ×2 (10:12→21:24)
[2020-01-09] MEDS: KLOR-CON PO SCH ×2 (10:12→21:25)
[2020-01-10] MEDS ORDERED: LASIX IV ONE (06:36)
--- NOTE | 2020-01-10 07:09 | PROGRESS NOTE ---
DATE: 01/10/2020 SUBJECTIVE: Ms. Simon is doing fair. The patient had low-grade fever around 99.5, mild cough. No expectoration. Denied any nausea or vomiting. No diarrhea. At times patient was tachycardic. Her chest x-ray there was no interval improvement. The patient's daughter was present. Finding reviewed and discussed. OBJECTIVE: Vital Signs: Noted. Neck: Supple. No JVD. Lungs: Bibasilar crepitations. Few rales. Cardiovascular: S1 and S2 heard. Abdomen: Soft, nontender. Bowel sounds present. DIRECT SUPPORT SPECIALIST: Alert, awake, able to move all 4 limbs. Clinically the patient seems to be doing better. The patient still has low-grade fever, tachycardia and chest x-ray showing some pulmonary congestion. I am going to resume her Cymbalta. I give her IV Lasix. Resume her Namenda. Watch patient today. If clinical condition permits, we will plan discharging patient back to halfway tomorrow. cc: Fabrizio Hernandez MD
[2020-01-10] MEDS: DUONEB (A & A) INH SCH ×5 (07:45→23:15)
[2020-01-10] MEDS: PROTONIX IV SCH (07:58)
[2020-01-10] MEDS ORDERED: MAGNESIUM SULFATE 2 GM/S.W.I. 2 GM/50 ML IVPB IV ONE (08:08)
[2020-01-10] MEDS: FLAGYL 500 MG/NS 500 MG/100 ML IVPB IV SCH ×4 (09:25→23:15)
[2020-01-10] MEDS: DEPAKOTE SPRINKLE PO SCH ×2 (09:43→23:20)
[2020-01-10] MEDS: NAMENDA PO SCH (09:46)
[2020-01-10] MEDS: CYMBALTA PO SCH (09:47)
[2020-01-10] MEDS: KLOR-CON PO SCH ×2 (09:48→23:20)
[2020-01-10] MEDS: CULTURELLE PO SCH ×2 (09:51→23:20)
[2020-01-10] MEDS: MAXIPIME 1 GM in NS 50 ML IV SCH ×2 (15:32)
[2020-01-10] MEDS: LOVENOX SUBQ SCH (23:20)
[2020-01-11] MEDS: MAXIPIME 1 GM in NS 50 ML IV SCH ×2 (00:59→14:02)
[2020-01-11] MEDS: FLAGYL 500 MG/NS 500 MG/100 ML IVPB IV SCH ×4 (04:28→20:53)
[2020-01-11] MEDS: PROTONIX IV SCH (06:00)
[2020-01-11] MEDS ORDERED: DUONEB (A & A) INH PRN (06:12)
--- NOTE | 2020-01-11 06:47 | PROGRESS NOTE ---
DATE: 01/11/2020 SUBJECTIVE: Ms. Simon is doing fair. Not able to give good history. At times, low-grade fever around 99. Patient is tachycardic at times. No nausea or vomiting. Oral intake variable. OBJECTIVE: Vital Signs: Vital signs as noted. Neck: Supple. No JVD. Lungs: Bibasilar crepitations. Heart: S1 and S2 heard. Abdomen: Soft and globular. Bowel sounds present. Extremities: No cyanosis or clubbing. No acute DVT. DIRECTOR COUNCIL ON AGING: The patient is sleeping but arousable. IMPRESSION AND PLAN: The patient's daughter was present. Her overall health seems to be declining. I am going to check appropriate labs. Continue current treatment. Close observation. I am going to hold her discharge. Consideration of pneumoniae and tachycardia. I am going to do venous Doppler of both legs. Appropriate labs and chest x-ray. Overall plan discussed with the daughter, and she is in agreement. cc: Fabrizio Hernandez MD
--- NOTE | 2020-01-11 07:39 | Diag Imaging Result Doc PS360 ---
CHEST-PORTABLE - 01/11/2020 INDICATION: sob COMPARISON: 01/09/2020 FINDINGS: There is some stable hazy infiltrate in the left lower lobe. Stable pulmonary vascular congestion. Heart size remains normal. IMPRESSION: No change from prior. Electronically signed by Stevan Mahajan 01/11/2020 7:37 AM
[2020-01-11 08:02] LABS: BASO# 0.09 X1000 (0.0-0.2); BASO% 0.9 % (0.0-0.8); EOS# 0.38 X1000 (0.0-0.7); HEMATOCRIT 42.7 % (37.0-47.0); HEMOGLOBIN 13.8 g/dL (12.0-16.0); IMM GRAN# 0.12 X1000 (0.0-0.04); IMM GRAN% 1.2 % (0.0-0.5); LYMPH# 2.52 X1000 (1.2-3.4); LYMPH% 26.2 % (20.5-51.1); MCH 30.9 PG (27-31); MCHC 32.3 g/dL (33-37); MCV 95.5 FL (81-99); MONO# 1.49 X1000 (0.11-0.59); MONO% 15.5 % (1.7-9.3); MPV 10.6 FL (7.4-10.4); NEUT# 5.01 X1000 (1.4-6.5); NEUT% 52.2 % (42.2-75.2); PLT 273 X1000 (130-400); RBC 4.47 XMIL (4.2-5.4); RDW 15.1 % (11.5-14.5); WBC 9.61 X1000 (4.8-10.8)
[2020-01-11 08:35] LABS: AGAP 8; ALB/GLOB RATIO 0.8; ALBUMIN 2.2 g/dL (3.5-5.0); ALKALINE PHOSPHATASE 46 U/L (32-104); BUN 7 mg/dL (8-22); CALCIUM 7.9 mg/dL (8.8-10.2); CHLORIDE 109 mmol/L (98-107); COSMO 287; CREATININE 0.5 mg/dL (0.5-0.9); ESTIMATED GFR > 60; GLUCOSE 97 mg/dL (70-104); GOT 15 U/L (10-30); GPT 8 U/L (10-36); POTASSIUM 3.8 mmol/L (3.5-5.1); SODIUM 145 mmol/L (136-145); TCO2 28 mmol/L (25-35); TOTAL BILIRUBIN 0.29 mg/dL (0.20-1.00)
--- NOTE | 2020-01-11 10:36 | EKG Report ---
Test Performed on : 01/11/2020 10:17:03 AM Test Reason : Elevated Troponin High Sensitivity Blood Pressure : / mmHG Vent. Rate : 090 BPM Atrial Rate : 090 BPM P-R Int : 118 ms QRS Dur : 076 ms QT Int : 356 ms P-R-T Axes : 052 -36 049 degrees QTc Int : 435 ms Normal sinus rhythm. Left axis deviation Low voltage QRS Possible Anterolateral infarct , age undetermined Abnormal ECG When compared with ECG of 06-JAN-2020 18:48, (Unconfirmed) Nonspecific T wave abnormality no longer evident in Lateral leads Confirmed by Dexter Arora MD ([id number]) on 01/13/2020 12:37:45 PM
[2020-01-11] MEDS: CYMBALTA PO SCH (10:56)
[2020-01-11] MEDS: KLOR-CON PO SCH ×2 (10:56→20:54)
[2020-01-11] MEDS: CULTURELLE PO SCH ×2 (10:56→20:53)
[2020-01-11] MEDS: DEPAKOTE SPRINKLE PO SCH ×2 (10:56→20:53)
[2020-01-11] MEDS: NAMENDA PO SCH (10:56)
--- NOTE | 2020-01-11 12:45 | CARDIOLOGY CONSULTATION ---
DATE: 01/11/2020 CHIEF COMPLAINT: The patient was apparently admitted with lethargy and being less responsive. We have been involved secondary to an elevated troponin. HISTORY OF PRESENT ILLNESS: At the time my evaluation, no family was available. The patient has no acute complaints. She denies any chest pain. She is not having any breathing difficulties. She was not able answer questions appropriately. Specifically, she did not know the year, she did not know the month. She did not know that she was in a hospital. She was not agitated. Again, she had no pain complaints. She specifically denied having any chest pain. PAST MEDICAL HISTORY: 1. COPD. 2. Dementia. 3. Reflux disease. SOCIAL HISTORY: She resides in a group home. No current tobacco use. FAMILY HISTORY/REVIEW OF SYSTEMS: Unable to be obtained. The patient is not able to answer questions appropriately. PHYSICAL EXAMINATION: Vital signs: She presently is afebrile. Heart rate 92, blood pressure 111/60. She had a T-max of 102.2 degrees on the , last fever was recorded on the at 100.6. General: She is in no acute distress. She is pleasant. HEENT: Oropharynx is moist. Poor dentition. Eye examination is pink conjunctivae, white sclerae. Neck: Examination shows no obvious thyromegaly or thyroid tenderness. Cardiovascular: She sounds to be in a regular rate and rhythm. She has no obvious murmurs. She has no S3. She has no lower extremity edema. Chest: Clear bilaterally. She has no increased work of breathing. Abdomen: Soft, nontender, nondistended. No obvious organomegaly. Skin: Warm and dry throughout without any rashes. Neurological: She seems to be able to move all extremities well but she is not very cooperative with the examination. PERTINENT DATA: Her chest x-ray on the demonstrated atelectasis versus pneumonia in the left lower lobe. Repeat x-ray done on the showed essentially no change. She had a head CT that demonstrated chronic ischemic changes, no acute findings. She has had 2 EKGs performed this hospitalization, the tracings were reviewed by me. Initial showed sinus rhythm, rate of 110 beats per minute, no obvious ischemic changes, somewhat low voltage. Next EKG occurring on the at 10:17 shows sinus rhythm, limited data to suggest possible inferior scar, poor R-wave progression. LABORATORY DATA: Initially, she came in with a white count of 19.8, hematocrit of 42, platelet count of 273,000. Her sodium is 145, potassium is 3.8 BUN 7, creatinine 0.5. Her initial troponin was 12 on the , it was subsequently checked on the and was 149. ASSESSMENT: Ms. Simon is a 74-year-old female with advanced dementia who presented confused. She is found to have a pneumonia. PLAN: Her white count was elevated on presentation, and was febrile. Since that time, she has defervesced and her white count has normalized. She seems to have had a response of treatment with her pneumonia. Her troponin was elevated. She does not have any acute complaints consistent with coronary ischemia. She does not have any acute EKG findings. We will check an echocardiogram to determine the degree of medical therapy we will pursue. The patient is not appropriate for an ischemia evaluation as she would not be an appropriate invasive evaluation candidate given her advanced dementia. We will start her on an 81 mg aspirin but otherwise we will await the echocardiogram results for further recommendations. cc: MD Fabrizio Orozco MD
--- NOTE | 2020-01-11 16:45 | ECHO REPORT ---
ORDER DATE: 01/11/2020 ECHOCARDIOGRAPHIC MEASUREMENTS: 1. Interventricular septum 0.9. 2. Left ventricular posterior wall 0.7. 3. Diastolic diameter 3.8 cm. 4. Left atrium 3.6 cm. 5. Aorta 2.67 cm. LIMITED 2D ECHOCARDIOGRAM: 1. Normal left ventricular cavity size. 2. Estimated ejection fraction 50 to 55 percent. There is septal hypokinesis. 3. Mitral valve was normal. 4. Tricuspid valve was normal. 5. Aortic valve leaflets were sclerosed, trileaflet opening normally. 6. Pulmonic valve was normal. 7. There is no pericardial effusion or obvious intracardiac mass or thrombus. cc: MD Joel Mcdowell MD Bharat K. Vakharia, MD
[2020-01-11] MEDS: LOVENOX SUBQ SCH (20:54)
[2020-01-12] MEDS: MAXIPIME 1 GM in NS 50 ML IV SCH ×2 (01:54→15:03)
[2020-01-12] MEDS: FLAGYL 500 MG/NS 500 MG/100 ML IVPB IV SCH ×4 (02:00→23:51)
[2020-01-12] MEDS: PROTONIX IV SCH (07:02)
[2020-01-12] MEDS: DEPAKOTE SPRINKLE PO SCH ×2 (09:23→23:51)
[2020-01-12] MEDS: KLOR-CON PO SCH ×2 (09:23→23:51)
[2020-01-12] MEDS: ASPIRIN EC PO SCH (09:23)
[2020-01-12] MEDS: CULTURELLE PO SCH ×2 (09:23→23:50)
[2020-01-12] MEDS: NAMENDA PO SCH (09:23)
[2020-01-12] MEDS: CYMBALTA PO SCH (09:24)
--- NOTE | 2020-01-12 10:32 | PROGRESS NOTE ---
DATE: 01/12/2020 SUBJECTIVE: Ms. Ana Paula Simon is doing fair. Oral intake is fair. No history suggestive of typical chest pain. No nausea or vomiting. No diarrhea. Patient blood work did reveal elevated troponin. OBJECTIVE: Vital signs: Noted. Neck: Neck is supple. No JVD. Lungs: Bibasilar crepitations. Heart: S1 and S2 heard. Abdomen: Soft, globular. Bowel sounds present. Extremities: No cyanosis, clubbing. No acute DVT. LOCKSTITCH MACHINE OPERATOR: Alert, awake, but patient does have dementia. ASSESSMENT AND PLAN: Nipping Machine Operator evaluation noted. Patient's problems include possible pneumonia. She ruled in for myocardial infarction. We decided to treat her medically. The family does not want any aggressive intervention. Family requested comfort care. I am going to continue current treatment. The plan is to discharge patient to rehab on Tuesday. Her echocardiogram results reviewed and discussed with the family. I am going to repeat blood work tomorrow. Overall prognosis fair to guarded. cc: Fabrizio Hernandez MD
--- NOTE | 2020-01-12 13:05 | CARDIOLOGY PROGRESS NOTE ---
DATE: 01/12/2020 CHIEF COMPLAINT: Lethargy, confusion. SUBJECTIVE: Ms. Simon had really no complaints today. She is just lying in bed. She appears to be comfortable. OBJECTIVE: Vital signs: Blood pressure is 126/85, temperature 97.6 degrees, pulse 80, respirations 16. General: The patient denies having pain at this time in the chest or any shortness of breath. HEENT: Unremarkable. Chest: Sounds clear to auscultation and percussion. Heart sounds: She does have a systolic murmur 2/6. Abdomen: Nontender. Extremities: Showed no edema. Neurologic exam: She follows some simple commands. BLOOD WORK: Sodium 145, potassium 3.8, BUN 7, creatinine 0.5. White count is normal 9310, hemoglobin 17.8. Her chest x-ray shows no change as compared to the original from 01/08. There was some hazy infiltrate in the left lower lobe. Echocardiogram done yesterday showed ejection fraction of 50% to 55%. IMPRESSION: 1. Patient who comes in with confusion. She appears to have a background of dementia. 2. Question of pneumonia. 3. Elevated troponin. This is probably reflective of some underlying coronary heart disease, however, the patient really has no chest pains or any acute changes on her electrocardiogram. Electrocardiogram yesterday showed sinus rhythm with a poor R wave progression across the precordial leads, no acute ST changes. 4. Reported history of back pain. 5. Abnormal urinalysis, possibly urinary tract infection. RECOMMENDATIONS: At this time, from Cardiology I do not have any specific advice. Comfort measures seem to be the reasonable thing to do as noted on Dr. Hernandez's note per family request. The patient is really not a candidate for ischemic workup or catheterization or anything like that. Please call us back if further assistance is needed. cc: MD Fabrizio Sifuentes MD
[2020-01-12] MEDS: LOVENOX SUBQ SCH (23:51)
[2020-01-13] MEDS: FLAGYL 500 MG/NS 500 MG/100 ML IVPB IV SCH ×4 (05:46→20:26)
[2020-01-13] MEDS: MAXIPIME 1 GM in NS 50 ML IV SCH ×2 (05:47→15:51)
[2020-01-13] MEDS: PROTONIX IV SCH (05:47)
[2020-01-13 07:08] LABS: BASO# 0.04 X1000 (0.0-0.2); BASO% 0.5 % (0.0-0.8); EOS# 0.24 X1000 (0.0-0.7); EOS% 3.2 % (0.0-10.0); HEMATOCRIT 41.9 % (37.0-47.0); HEMOGLOBIN 13.3 g/dL (12.0-16.0); IMM GRAN# 0.08 X1000 (0.0-0.04); IMM GRAN% 1.1 % (0.0-0.5); LYMPH# 2.08 X1000 (1.2-3.4); LYMPH% 27.5 % (20.5-51.1); MCH 30.4 PG (27-31); MCHC 31.7 g/dL (33-37); MCV 95.9 FL (81-99); MONO# 0.98 X1000 (0.11-0.59); MONO% 12.9 % (1.7-9.3); MPV 10.3 FL (7.4-10.4); NEUT# 4.15 X1000 (1.4-6.5); NEUT% 54.8 % (42.2-75.2); PLT 328 X1000 (130-400); RBC 4.37 XMIL (4.2-5.4); WBC 7.57 X1000 (4.8-10.8)
[2020-01-13 07:20] LABS: AGAP 11; ALB/GLOB RATIO 1.1; ALBUMIN 2.5 g/dL (3.5-5.0); ALKALINE PHOSPHATASE 43 U/L (32-104); BUN 9 mg/dL (8-22); CALCIUM 8.5 mg/dL (8.8-10.2); CHLORIDE 105 mmol/L (98-107); COSMO 281; CREATININE 0.5 mg/dL (0.5-0.9); ESTIMATED GFR > 60; GLUCOSE 81 mg/dL (70-104); GOT 15 U/L (10-30); GPT 9 U/L (10-36); MAGNESIUM 1.6 mg/dL (1.5-2.7); POTASSIUM 3.8 mmol/L (3.5-5.1); SODIUM 142 mmol/L (136-145); TCO2 26 mmol/L (25-35); TOTAL BILIRUBIN 0.27 mg/dL (0.20-1.00); TOTAL PROTEIN 4.8 g/dL (6.3-8.3)
[2020-01-13] MEDS: KLOR-CON PO SCH ×2 (08:22→20:25)
[2020-01-13] MEDS: CULTURELLE PO SCH ×2 (08:22→20:26)
[2020-01-13] MEDS: CYMBALTA PO SCH (08:22)
[2020-01-13] MEDS: NAMENDA PO SCH (08:22)
[2020-01-13] MEDS: ASPIRIN EC PO SCH (08:22)
--- NOTE | 2020-01-13 09:00 | EKG Report ---
Test Performed on : 01/13/2020 07:59:29 AM Test Reason : Increased Troponin Blood Pressure : / mmHG Vent. Rate : 092 BPM Atrial Rate : 092 BPM P-R Int : 132 ms QRS Dur : 080 ms QT Int : 360 ms P-R-T Axes : 057 -20 060 degrees QTc Int : 445 ms Normal sinus rhythm. Low voltage QRS Borderline ECG When compared with ECG of 11-JAN-2020 10:17, (Unconfirmed) No significant change was found Confirmed by Dexter Arora MD ([id number]) on 01/13/2020 12:48:56 PM
--- NOTE | 2020-01-13 11:27 | PROGRESS NOTE ---
DATE: 01/13/2020 VITAL SIGNS: Stable with temperature of 98.7 degrees, heart rate 93, respirations 14, blood pressure 130/61, O2 saturation on room air 93%. LABORATORY AND DIAGNOSTIC DATA: Elevated troponin this morning of 204. EKG was unchanged from one done on 01/11/2020. Other laboratory shows sodium 142, potassium 3.8, BUN 9, creatinine 0.5, calcium 8.5, total protein 4.8, albumin 2.5. Hemoglobin 13.3, hematocrit 41.4, white blood count 7600 (this is down from 19,000 on 01/06/2020 and 12,000 on 01/09/2020. Last chest x-ray on 01/11/2020 revealed hazy infiltrate in the left lower lobe, unchanged from previous films. PLAN: Continue intravenous antibiotics. Portable chest x-ray will be done tomorrow morning. cc: MD Fabrizio Shields MD
[2020-01-13] MEDS: DEPAKOTE SPRINKLE PO SCH (20:26)
[2020-01-14] MEDS: LOVENOX SUBQ SCH (06:06)
[2020-01-14] MEDS: PROTONIX IV SCH (06:16)
[2020-01-14] MEDS: FLAGYL 500 MG/NS 500 MG/100 ML IVPB IV SCH ×2 (06:16→10:19)
[2020-01-14] MEDS: MAXIPIME 1 GM in NS 50 ML IV SCH (06:16)
--- NOTE | 2020-01-14 07:07 | PROGRESS NOTE ---
DATE: 01/14/2020 SUBJECTIVE: Ms. Simon is doing fair. She denied any high-grade fever or chills. No unusual cough, expectoration. Oral intake variable. OBJECTIVE: Vital Signs: Blood pressure low normal. Her vital signs noted. Neck: Supple. No JVD. Lungs: Bibasilar crepitations. Heart: S1 and S2 heard. Abdomen: Soft, globular. Bowel sounds present. SLEEPING CAR CONDUCTOR: Alert, awake, able to move all 4 limbs. Uncooperative for detailed neurologic examination. CONSIDERATION: The patient's problem includes possible pneumonia, non ST-elevation myocardial infarction, dementia. The patient is on aspirin. Her blood pressure stays low-normal. I am concerned about starting her on beta portia. Echocardiogram results reviewed and discussed with family. Blood work done yesterday noted. WBC count back to normal. Hemoglobin 13.3, hematocrit 41.9, platelet count 328,000. Electrolytes were fairly benign. Her high-sensitivity troponin was 204. The patient is scheduled to have chest x-ray. Discussed with family that considering her dementia, which is advanced, the patient is not a candidate for advanced intervention. We can optimize medical management. One option was to add a beta portia, but her blood pressure is low, and I am concerned. I am going to talk to botanical technical officer, and then will make further recommendations. I am going to stop her antibiotics. Close observation. If clinical condition permits, I am planning to discharge her back to custodial soon. Plan discussed with the family, and they are in agreement. cc: Fabrizio Hernandez MD
--- NOTE | 2020-01-14 10:23 | Diag Imaging Result Doc PS360 ---
CHEST-PORTABLE - 01/14/2020 INDICATION: pneumonia COMPARISON: 01/11/2020 FINDINGS: There is some persistent atelectasis or infiltrate in the left lower lobe with poor visualization of the left hemidiaphragm. Stable severely low lung volumes. Heart size remains borderline. IMPRESSION: No change from prior. Electronically signed by Stevan Mahajan 01/14/2020 10:20 AM
[2020-01-14] MEDS: KLOR-CON PO SCH (10:28)
[2020-01-14] MEDS: NAMENDA PO SCH (10:28)
[2020-01-14] MEDS: ASPIRIN EC PO SCH (10:28)
[2020-01-14] MEDS: CULTURELLE PO SCH (10:29)
[2020-01-14] MEDS: CYMBALTA PO SCH (10:32)
--- NOTE | 2020-01-14 10:58 | CARDIOLOGY PROGRESS NOTE ---
DATE: 01/14/2020 SUBJECTIVE: Ms. Simon has pain complaints that include a headache. She has no chest pain. She continues to have very limited interaction with the examiner. PHYSICAL EXAMINATION: Vital Signs: She is afebrile, heart rate is in the 70s to 80s predominantly. Her blood pressure most recently was 109/82. She had some systolics on the and in the 80s to 90s. General: No acute distress. Cardiovascular: She sounds to be in a regular rate and rhythm. She has no murmurs. She has no S3. She has no lower extremity edema. Chest: Clear bilaterally. She has no increased work of breathing. Abdomen: Soft and nontender. PERTINENT DATA: She had an echocardiogram performed on the that shows an EF of 50 to 55 percent with some evidence of septal hypokinesis. Her most recent EKG on the shows a normal sinus rhythm with some evidence of low voltage. Her lab data shows a sodium 142, potassium 3.8, BUN 9, and creatinine 0.5. Her troponin most recently was 204. ASSESSMENT: Ms. Simon is a 74-year-old female who has dementia, possible pneumonia, and elevated troponins. PLAN: Patient has no symptoms suggestive of ACS, but she has a severe degree of dementia. Her troponins have been elevated. Her ejection fraction is normal. She does have some evidence for septal hypokinesis. At this point, I would continue her on the aspirin. I have added in low-dose beta portia with parameters to hold if systolic is less than 100 or heart rate is less than 60. I would not proceed with an ischemia evaluation in this patient given her advanced degree of dementia. I would treat this medically at this point. Her blood pressure does have some limitations in how aggressively we can treat this. cc: MD Fabrizio Orozco MD
--- NOTE | 2020-01-14 12:02 | DISCHARGE SUMMARY ---
ADMISSION DATE: 01/07/2020 DISCHARGE DATE: 01/14/2020 FINAL DISCHARGE DIAGNOSIS: 1. Pneumonia. Non ST elevation myocardial infarction. 2. Altered mental status. 3. Urinary tract infection. 4. Acute non ST elevation myocardial infarction. 5. Altered mental status/metabolic encephalopathy. 6. Systemic inflammatory response syndrome. 7. History of gallstone. 8. Alzheimer type dementia. HOSPITAL COURSE: Ms. Simon is a 74-year-old white female patient with multiple medical problems, resident of [facility], admitted with fever and chills. The patient was lethargic and less responsive. Also difficulty swallowing. The rest of the information from admission history and physical. The patient was evaluated in the ER, admitted for further care. The patient was treated with IV fluid, IV antibiotics and symptomatic care. Her clinical condition gradually improved. The patient had a slow recovery. At times, her blood pressure was staying low normal. Her cardiac isoenzymes, troponin was staying high. Cardiology consult obtained. The patient underwent echocardiogram. Results reviewed and discussed with family. The patient considering her underlying medical condition is not a candidate for aggressive intervention. We decided to treat the patient conservatively. The family is in agreement. Overall patient is doing fair. She was not able to give good history. I evaluated the patient today, and on Tuesday discussed her clinical condition, prognosis with son and daughter. They requested comfort care. They prefer not to send patient to hospital if possible. I did discuss her condition with hide mill man, Dr. Shaver, and again patient is not a candidate for intervention. We decided to treat patient medically. Family is in agreement. I am going to discharge patient to the [facility] today. Her stool workup is pending. DISCHARGE PHYSICAL EXAMINATION: Vital Signs: Her vital signs noted. Neck: Supple. No JVD. Lungs: Bibasilar crepitation. Heart: S1 and S2 heard. Abdomen: Soft, nontender. Bowel sounds present. BLENDING LINE ATTENDANT: Alert, awake, uncooperative for detailed exam. LABORATORY DATA: Revealed hemoglobin 13.3, hematocrit 41.9, WBC count 7.57, platelet count 328, which did improve compared to admission lab. Her high sensitivity troponin was 204, which was done yesterday. The rest of the electrolytes were benign. Calcium was 8.5, magnesium 1.6. IMAGING STUDIES: Chest x-ray done today did reveal atelectasis versus infiltrate. It was more sounding like atelectasis. DISCHARGE DISPOSITION: As patient is afebrile, white count is improving. Overall patient received maximum benefit of hospitalization. I am planning to discharge her back to [facility]. Overall prognosis is poor. Family is aware of the prognosis, and they are in agreement. Electrical Accessories I Assembler added a small dose of beta portia. We will continue aspirin supportive care. Rest of the orders as per separate sheet. cc: Fabrizio Hernandez MD
[2020-01-14 12:06] VITALS: BP 112/60
[2020-01-15] MEDS ORDERED: TOPROL XL PO SCH (09:00)
--- NOTE | 2020-01-15 16:54 | Extremity Venous Study ---
PROCEDURE NAME: Venous U/S Bilateral Legs - 01/11/2020 REFERRING PHYSICIAN: Dr. Hernandez. READING PHYSICIAN: Fede Drake MD PHYSICAL METALLURGIST: Gill. INDICATION: Leg swelling. COMPARISON STUDY: 10/17/2018. FINDINGS: The deep and superficial veins of the lower extremities were imaged throughout their course. They are compressible, patent without thrombus. INTERPRETATION: No DVT or SVT of either lower extremity. This is unchanged from the prior study on 10/17/2018. cc: MD Fabrizio Igleisas MD
--- NOTE | 2020-02-06 08:27 | DISCHARGE SUMMARY ---
ADMISSION DATE: 01/07/2020 DISCHARGE DATE: 01/14/2020 ADDENDUM REPORT: Ms. Ana Paula Simon's presentation does include possibility of systemic inflammatory response syndrome, could be due to gram-negative pneumonia, and the patient was treated appropriately. cc: Fabrizio Hernandez MD
== END 2020-01-14 15:19 | DRG 177 ==
LOC: ED 18:22 → 3N 01-07 00:14 → SUATTDRO 01-07 00:14
PROVIDERS: ADMIT Internal Medicine; ATTEND Internal Medicine